=== PATIENT | male | born 1950 | race Caucasian/White ===

== ENCOUNTER 2020-05-14 10:07 | Inpatient (IN) | payer OTHER ==
[2020-05-14] MEDS ORDERED: SODIUM CHLORIDE 1,000 ML IV STA (10:57)
--- NOTE | 2020-05-14 11:18 | PDOC ---
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 Pt states he was followed outpatient by Dr. Pisano in Vasc/wound care, noted a left inner thigh mass a few days ago and upon follow up in clinic today, the wound is larger, attempted I&D of fluid collection showed no drainage . Pt denies F/C/N/V, new pain, changes in bowel or bladder habits, CP, SOB, abdominal pain. Pt became a rapid response after wound care appointment, reports low BP and feelings of presyncope. Pt denies LOC, falling or hitting his head, N/V/F/C, neck pain, changes in gait, weakness or sensory changes on 1 side of his body. Reported presyncopal event occured after getting up from the supine position which was after the I&D procedure Past History - Medical History Allergies/Adverse Reactions: Allergies Allergy/AdvReac Type Severity Reaction Status Date / Time bee venom protein (honey bee) Allergy Verified 05/14/20 10:17 Home Medications: Ambulatory Orders Amiodarone HCl 1 tab PO DAILY 05/14/20 Amlodipine Besylate [Norvasc -] 2.5 mg PO DAILY 05/14/20 Atorvastatin Ca [Lipitor] 1 tab PO DAILY 05/14/20 Calcium Carbonate/Vitamin D3 [Calcium 500-Vit D3 400 Tablet] 1 tab PO DAILY 05/14/20 Collagenase Clostridium Hist. [Santyl] 1 applic TD DAILY 05/14/20 Docusate Sodium [Colace] 1 cap PO DAILY 05/14/20 Ferrous Sulfate 1 tab PO BID 05/14/20 Hydrocodone/Acetaminophen [Hydrocodone-Acetamin 5-300 mg] 1 tab PO BID PRN 05/14/20 Menthol [Biofreeze] 1 applic TD DAILY 05/14/20 Metoprolol Succinate 1 tab PO DAILY 05/14/20 Mirtazapine [Remeron -] 1 tab PO DAILY 05/14/20 Multivitamin 1 tab PO DAILY 05/14/20 Mupirocin Cream [Bactroban 2% Cream -] 1 applic TD DAILY 05/14/20 Polyethylene Glycol 17 gm PO DAILY 05/14/20 Probiotic & Acidophilus Cap 1 tab PO DAILY 05/14/20 Sennosides [Senna] 1 cap PO DAILY 05/14/20 Tylenol .Extra-Strength - 500 mg PO BID PRN 05/14/20 Anemia: Yes Cancer: Yes (prostate) COPD: No HTN: Yes Hypercholesterolemia: Yes Thyroid Disease: Yes (hypothyrodism) - Surgical History Abdominal Surgery: Yes (colostomy) - Psycho-Social/Smoking History Smoking History: Unknown if ever smoked - Substance Abuse Hx (Audit-C & DAST Scrn) In the last yr the pt used illegal drug/Rx for NonMed reason: No Score: Yes response is considered Positive: 0 Screen Result (Positive result requires Nsg. DAST-10): Negative Review of Systems - Review of Systems Constitutional: Yes: See HPI HEENTM: Yes: See HPI Respiratory: Yes: See HPI Cardiac (ROS): Yes: See HPI ABD/GI: Yes: See HPI : Yes: See HPI Musculoskeletal: Yes: See HPI Integumentary: Yes: See HPI Neurological: Yes: See HPI *Physical Exam - Vital Signs Last Vital Signs Temp Pulse Resp BP Pulse Ox 97.8 F 84 16 104/66 98 05/14/20 10:10 05/14/20 10:10 05/14/20 10:10 05/14/20 10:10 05/14/20 10:10 - Physical Exam General Appearance: Yes: Nourished, Appropriately Dressed. No: Apparent Distress HEENT: positive: EOMI, ADAM Neck: positive: Supple. negative: Carotid bruit, Rigidity Respiratory/Chest: positive: Lungs Clear, Normal Breath Sounds. negative: Respiratory Distress, Accessory Muscle Use, Rapid RR, Decreased Breath Sounds, Crackles, Rales, Rhonchi, Stridor, Wheezing Cardiovascular: positive: Regular Rhythm, Regular Rate, S1, S2. negative: Edema, JVD, Murmur Vascular Pulses: Dorsalis-Pedis (R): 4+, Doralis-Pedis (L): 4+ Gastrointestinal/Abdominal: positive: Flat, Soft. negative: Pulsatile Mass, Distended, Guarding, Rebound, Tenderness Musculoskeletal: negative: CVA Tenderness Extremity: positive: Normal Capillary Refill, Normal Inspection, Normal Range of Motion Integumentary: positive: Other (multiple lesions on scalp and chest Basal cell CA and stage 2 sacral dec ulcer. Noted area left proximal inner thigh erythematous, indurated, painful packed with gauze after I&D ) Neurologic: positive: strategic sourcing consultant II-XII NML intact, Fully Oriented, Alert, Normal Mood/Affect, Normal Response, Motor Strength 5/5. negative: Facial Droop, Numbness, Sensory Deficit, Finger to Nose (normal), Confused, Disoriented ED Treatment Course - LABORATORY CBC & Chemistry Diagram: 05/16/20 06:20 05/16/20 06:20 - ADDITIONAL ORDERS Additional order review: Laboratory Results 05/14/20 10:43 POC Glucometer 92 05/14/20 10:43 POC Glucometer 92 - RADIOLOGY Radiology Studies Ordered: Category Date Time Status HEAD CT WITHOUT CONTRAST [CT] Stat CT Scan 05/14/20 10:54 Ordered CHEST X-RAY PORTABLE* [RAD] Stat Radiology 05/14/20 10:54 Ordered Medical Decision Making - Medical Decision Making 05/14/20 11:29 69 yo male pmh basal cell carcinomaand prostate ca (last radiation over a year ago), 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 Pt states he was followed outpatient by Dr. Pisano in Vasc/wound care, noted a left inner thigh mass a few days ago and upon follow up in clinic today, the wound is larger, attempted I&D of fluid collection showed no drainage . Pt denies F/C/N/V, new pain, changes in bowel or bladder habits, CP, SOB, abdominal pain. Pt became a rapid response after wound care appointment, reports low BP and feelings of presyncope. Pt denies LOC, falling or hitting his head, N/V/F/C, neck pain, changes in gait, weakness or sensory changes on 1 side of his body. Reported presyncopal event occured after getting up from the supine position which was after the I&D procedure Vitals stable, NAD EKG NSR vent rate 72 with normal intervals and no ST changes Pt on monitor, states he feels back to normal. Discussed case with Dr. Pisano, states I&D for possible abscess, no drainage and concerning now for possible CA recurrence. Recommends CT and likely IR biopsy CXR shows coiled line right side. Due to elevated WBC 16 and the left inner thigh mass, erythema, painful and reports of pus drainage at home, consider line infection and will cover with Vanc/Zosyn Trops neg, labs otherwise WNL 05/14/20 16:33 CT lower ext shows metastatic disease in the pubic bone, soft tissue mass extending from the left pubic bone into the medial thigh consistent with neoplasm with central fluid collection (necrosis vs abscess) Page sent to Dr. Pisano with regards to the CT results. Pt accepted for admission by Attending Hospitalist Discharge - Discharge Information Problems reviewed: Yes Clinical Impression/Diagnosis: Pre-syncope, Abscess, Cancer - Admission Yes - Follow up/Referral - Patient Discharge Instructions - Post Discharge Activity
--- NOTE | 2020-05-14 11:53 | PDOC ---
Documentation entered by Henrry Phillips SCRIBE, acting as scribe for Charlene Pat MD. Charlene Pat MD: This documentation has been prepared by the Alan carrero Xhesika, SCRIBE, under my direction and personally reviewed by me in its entirety. I confirm that the documentation accurately reflects all work, treatment, procedures, and medical decision making performed by me. Attending Attestation - Resident Resident Name: Riley Singh - ED Attending Attestation I have performed the following: I have examined & evaluated the patient, The case was reviewed & discussed with the resident, I agree w/resident's findings & plan, Exceptions are as noted - HPI HPI: 05/14/20 10:40 The patient is a 69y/o M with a pmh of basel cell carcinoma\. 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 Pt states he was called in by Dr. Salazar to have his L inner thigh abscess drained. Pt states Dr. Salazar attempted to drain his abscess when the pt became hypotensive and did not feel like himself. Pt denies LOC. Pt states he is back to his normal self now. has been eating and drinking ok. nonproductive cough,, no f/c no diarreha. no cp no sob. has been recently admitted [facility] . denies h/o covid. been tested multiple times. Allergies: NKDA. Bee venom protein wound care dr salazar. 05/14/20 11:31 - Physicial Exam PE: 05/14/20 11:34 awake alert lungs clear bilat heart rrr no mrg abd soft colostomy in place. nontender. skin : sacral decub. stage 4, yellowbase, quarter size, left inghinal region hard, indurated mass 2 x 3 in, central I&^D wound with wick in place/ packing. no erythema. skin scalp with large, heaped up lesion right parietal scalp. nuero alert oriented x 3. superficial linear abrasion right forearm. - Medical Decision Making 05/14/20 11:36 69 yo M with h/o basal cell, prostate ca, left inguinal mass, sacral decub. here with near syncopal episode at office today. pt was hypotensive just following, no precipitating cp or palpitations. differential sepsis, dehydration , orthostatis, situational from procedure, plan ct head, ct leg to evaluate mass, will emerson require admission for near synopce. labs ekg cxr 05/14/20 16:12 pt given abx for wbc 16, concerns for infection. has indwelling line. given vanco zosyn neoplasm, possible necrotic possible deep space abscess. Dr Salazar consult placed. has already tried to I&D in office. otherwise labs unremarkable. pt is anemic, no prior hgb to compare. Heart Score/ECG Review #1 General ECG Interpretation: Sinus Rhythm, Normal Rate (85), Normal Intervals, No acute ischemic changes Discharge - Discharge Information Problems reviewed: Yes Clinical Impression/Diagnosis: Pre-syncope, Abscess, Cancer - Follow up/Referral - Patient Discharge Instructions - Post Discharge Activity
[2020-05-14 11:58] LABS: BASO % 0.6 % (0-2.0); EOS % 0.8 % (0-4.5); HEMATOCRIT 26.9 % (35.4-49); HEMOGLOBIN 8.4 GM/dL (11.7-16.9); LYMPH % 5.1 % (8-40); MCH 25.1 pg (25.7-33.7); MCHC 31.1 g/dl (32.0-35.9); MEAN CELL VOLUME 80.7 fl (80-96); MEAN PLT VOLUME 7.1 fl (7.5-11.1); MONO % 3.7 % (3.8-10.2); NEUT % 89.8 % (42.8-82.8); PLATELET COUNT 718 K/MM3 (134-434); RBC 3.33 M/mm3 (4.00-5.60); RDW 22.5 % (11.9-15.9); WHITE BLOOD COUNT 16.7 K/mm3 (4.0-10.0)
[2020-05-14 12:16] LABS: INR 1.17 (0.83-1.09); PROTHROMBIN TIME (PATIENT) 13.8 SEC (9.7-13.0)
[2020-05-14 12:30] LABS: ALK PHOS 118 U/L (45-117); ANION GAP 6 MMOL/L (8-16); BILIRUBIN,TOTAL 0.7 mg/dL (0.2-1); BLOOD UREA NITROGEN 20.1 mg/dL (7-18); CALCIUM 9.6 mg/dL (8.5-10.1); CHLORIDE 100 mmol/L (98-107); CO2 29 mmol/L (21-32); CREATININE 0.8 mg/dL (0.55-1.3); GLUCOSE,RANDOM 105 mg/dL (74-106); POTASSIUM 4.6 mmol/L (3.5-5.1); SGOT/AST 36 U/L (15-37); SGPT/ALT 44 U/L (13-61); SODIUM 136 mmol/L (136-145)
[2020-05-14 13:44] LABS: ANISOCYTOSIS 1+
[2020-05-14 13:45] LABS: OVALOCYTE 1+; PLATELET ESTIMATE INCREASED; ROULEAU 2+; TEAR DROP CELLS 1+
[2020-05-14] MEDS ORDERED: PIPERACILLIN/TAZOB 4.5 GM 4.5 GM in DEXTROSE 5%-WATER 100 ML IVPB ONE (14:16)
[2020-05-14] MEDS ORDERED: VANCOMYCIN 1 GM in D5W (PRE-DOCKED) 1,000 MG/250 ML IVPB ONE (14:16)
--- NOTE | 2020-05-14 16:46 | CON.ID ---
Consult Consult Specialty:: infectious diseases Referred by:: dr. askew Reason for Consultation:: lef leg abscess,swelling - History of Present Illness Chief Complaint: swelling of the left leg History of Present Illness: 69 y.o. M w/ PMHx. of HTN, Irregular Heart Rate, Hx. of BCC (s/p removal with various mechanisms over the last 20+ years), and Prostate CA(s/p 40 rounds of RT, complicated by colon perforation, s/p colostomy) presents from Wound Care for chronic wound that was not draining on today at the center. Hospital course complicated by syncope. Pt. states that all of his issues started 2 years ago and that he was not on any medications at that time even though he believed he was told in the past that he had high blood pressure. . Pt. states that since his diagnosis of Prostate CA he was treated with RT which "burned a hole through his colon." Pt. states that he follow with Vashti Edwards? at [facility]? Pt. had colostomy at [place] 2 years ago. Pt. unsure of his medical history as he does not have a PCP and care has been disjointed. Pt. currently at [facility] and is unable to ambulate. Pt. completed 6 weeks of Vancomycin on 05/04/20. patient currently feels better aspiration of the swelling did not yield any collection - History Source History Provided By: Patient, Medical Record Limitations to Obtaining History: No Limitations - Smoking History Smoking history: Unknown if ever smoked Home Medications - Allergies Allergies/Adverse Reactions: Allergies Allergy/AdvReac Type Severity Reaction Status Date / Time bee venom protein (honey bee) Allergy Verified 05/14/20 10:17 - Home Medications Home Medications: Ambulatory Orders Calcium Carbonate/Vitamin D3 [Calcium 500-Vit D3 400 Tablet] 1 tab PO DAILY 05/14/20 Collagenase Clostridium Hist. [Santyl] 1 applic TD DAILY 05/14/20 Docusate Sodium [Colace] 1 cap PO DAILY 05/14/20 Hydrocodone/Acetaminophen [Hydrocodone-Acetamin 5-300 mg] 1 tab PO BID PRN 05/14/20 Menthol [Biofreeze] 1 applic TD DAILY 05/14/20 Mirtazapine [Remeron -] 1 tab PO DAILY 05/14/20 Mupirocin Cream [Bactroban 2% Cream -] 1 applic TD DAILY 05/14/20 Polyethylene Glycol 17 gm PO DAILY 05/14/20 Probiotic & Acidophilus Cap 1 tab PO DAILY 05/14/20 RX: Amiodarone HCl 1 tab PO DAILY 05/14/20 RX: Amlodipine Besylate [Norvasc -] 2.5 mg PO DAILY 05/14/20 RX: Atorvastatin Ca [Lipitor] 1 tab PO DAILY 05/14/20 RX: Ferrous Sulfate 1 tab PO BID 05/14/20 RX: Metoprolol Succinate 1 tab PO DAILY 05/14/20 RX: Multivitamin 1 tab PO DAILY 05/14/20 Sennosides [Senna] 1 cap PO DAILY 05/14/20 Tylenol .Extra-Strength - 500 mg PO BID PRN 05/14/20 Review of Systems - Review of Systems Constitutional: reports: Weakness Eyes: reports: No Symptoms HENT: reports: No Symptoms Neck: reports: No Symptoms Cardiovascular: reports: No Symptoms Respiratory: reports: No Symptoms Gastrointestinal: reports: No Symptoms Musculoskeletal: reports: Other Integumentary: reports: Other Neurological: reports: No Symptoms Endocrine: reports: No Symptoms Hematology/Lymphatic: reports: No Symptoms Psychiatric: reports: No Symptoms Physical Exam Vital Signs: Vital Signs Temperature 97.8 F 05/14/20 10:10 Pulse Rate 84 05/14/20 10:10 Respiratory Rate 16 05/14/20 10:10 Blood Pressure 104/66 05/14/20 10:10 O2 Sat by Pulse Oximetry (%) 98 05/14/20 10:10 Constitutional: Yes: Thin Eyes: Yes: Conjunctiva Clear HENT: Yes: Atraumatic, Normocephalic Neck: Yes: Supple, Trachea Midline Cardiovascular: Yes: Regular Rate and Rhythm Respiratory: Yes: Regular, CTA Bilaterally Gastrointestinal: Yes: Normal Bowel Sounds, Soft Musculoskeletal: Yes: WNL Extremities: Yes: Other (sweeling of the left thigh hardish for palpation) Wound/Incision: Yes: Dressing Dry and Intact Neurological: Yes: Alert, Oriented Psychiatric: Yes: Alert, Oriented Labs: CBC, BMP 05/14/20 11:20 05/14/20 11:20 Imaging - Results Chest X-ray: Report Reviewed, Image Reviewed Cat Scan: Report Reviewed, Image Reviewed Assessment/Plan 69M w/ pmhx of HTN, Irregular Heart Rate? (pt denies being told he has Afib), hx of BCC (s/p removal with various mechanisms over the last 20+ years), and Prostate CA(s/p 40 rounds of RT, complicated by colon perforation, s/p colostomy) presents from Wound Care for chronic wound that was not draining on today at the center. Hospital course complicated by syncope. r/o metastatic cancer afib syncope anemia htn i am worried if this is a malignancy involving the bone i am going to start empiric abx for the time being once we have all the results will decide further might need biopsy rest as per the team
[2020-05-14] MEDS ORDERED: PIPERACILLIN/TAZOB 4.5 GM 4.5 GM/100 ML BAG IVPB ONE (17:00)
[2020-05-14] MEDS ORDERED: SODIUM CHLORIDE 1,000 ML IV SCH (17:00)
[2020-05-14] MEDS ORDERED: VANCOMYCIN 1 GRAM (PRE-DOCKED) 1,000 MG/250 ML BAG IVPB ONE (17:01)
--- NOTE | 2020-05-14 17:09 | HP ---
CHIEF COMPLAINT: Syncope and LLE wound PCP: None HISTORY OF PRESENT ILLNESS: Pt. is a 69 y.o. M w/ PMHx. of HTN, Irregular Heart Rate?( Pt. denies being told he has Afib), Hx. of BCC (s/p removal with various mechanisms over the last 20+ years), and Prostate CA(s/p 40 rounds of RT, complicated by colon perforation, s/p colostomy) presents from Wound Care for chronic wound that was not draining on today at the center. Hospital course complicated by syncope. Pt. states that all of his issues started 2 years ago and that he was not on any medications at that time even though he believed he was told in the past that he had high blood pressure. Pt. with son Sav Renteria at bedside ([phone]). Pt. states that since his diagnosis of Prostate CA he was treated with RT which "burned a hole through his colon." Pt. states that he follow with Vashti Edwards? at [facility]? Pt. had colostomy at [place] 2 years ago. Pt. unsure of his medical history as he does not have a PCP and care has been disjointed. Pt. currently at [facility] and is unable to ambulate. Pt. completed 6 weeks of Vancomycin on 05/04/20. ER course was notable for: (1)1 L NS, Vanc/Zosyn (2)UCx/ Bcx. (3) Recent Travel: No PAST MEDICAL HISTORY: As above PAST SURGICAL HISTORY: Colostomy Social History: Smoking: Denies Alcohol: Denies Drugs: Denies Family Hx.: All brothers and father have Hx. of [place] in 40s. One brother has Prostate CA diagnosed in 60s. Allergies bee venom protein (honey bee) Allergy (Verified 05/14/20 10:17) HOME MEDICATIONS: Home Medications Medication Instructions Recorded Amiodarone HCl 1 tab PO DAILY 05/14/20 Amlodipine Besylate [Norvasc -] 2.5 mg PO DAILY 05/14/20 Atorvastatin Ca [Lipitor] 1 tab PO DAILY 05/14/20 Calcium Carbonate/Vitamin D3 1 tab PO DAILY 05/14/20 [Calcium 500-Vit D3 400 Tablet] Collagenase Clostridium Hist. 1 applic TD DAILY 05/14/20 [Santyl] Docusate Sodium [Colace] 1 cap PO DAILY 05/14/20 Ferrous Sulfate 1 tab PO BID 05/14/20 Heparin Lock Flush 10 Units/ml 1 IV DAILY 05/14/20 Hydrocodone/Acetaminophen 1 tab PO BID PRN 05/14/20 [Hydrocodone-Acetamin 5-300 mg] Menthol [Biofreeze] 1 applic TD DAILY 05/14/20 Metoprolol Succinate 1 tab PO DAILY 05/14/20 Mirtazapine [Remeron -] 1 tab PO DAILY 05/14/20 Multivitamin 1 tab PO DAILY 05/14/20 Mupirocin Cream [Bactroban 2% 1 applic TD DAILY 05/14/20 Cream -] Piperacillin/Tazob 3.375 gm [Zosyn 3.375 gm IV TID 05/14/20 3.375GM Ivpb (Pre-Docked)] Polyethylene Glycol 17 gm PO DAILY 05/14/20 Probiotic & Acidophilus Cap 1 tab PO DAILY 05/14/20 Sennosides [Senna] 1 cap PO DAILY 05/14/20 Tylenol .Extra-Strength - 500 mg PO BID PRN 05/14/20 REVIEW OF SYSTEMS As above PHYSICAL EXAMINATION Vital Signs - 24 hr 05/14/20 10:10 Temperature 97.8 F Pulse Rate 84 Respiratory 16 Rate Blood Pressure 104/66 O2 Sat by Pulse 98 Oximetry (%) GENERAL: Awake, alert, and in no acute distress, thin and cachectic HEAD: Normal with no signs of trauma. Left frontal masses(BCC?) EYES: Sclera anicteric, conjunctiva clear. EARS, NOSE, THROAT: Ears normal, nares patent, oropharynx clear without exudates. Moist mucous membranes. NECK: Normal range of motion, supple without lymphadenopathy, JVD, or masses. LUNGS: Breath sounds equal anteriorly, clear to auscultation bilaterally. No wheezes, and no crackles. HEART: Faint Heart sounds, Regular rate and rhythm, normal S1 and S2 without murmur. R. Central line into subclavian ABDOMEN: Soft, nontender, not distended, normoactive bowel sounds, no guarding, no rebound, no masses. UPPER EXTREMITIES: 2+ radial pulses, warm, well-perfused. No cyanosis. No peripheral edema. LOWER EXTREMITIES: 2+ dorsal pedal pulses, warm, well-perfused. No calf tenderness. No peripheral edema. L. groin mass non-tender to palpation, no drainage, no erythema, no fluctuance. NEUROLOGICAL: 5/5 muscle strength throughout, sensation intact. Normal speech. Gait not assessed. PSYCHIATRIC: Cooperative. Good eye contact. Appropriate mood and affect. SKIN: Rash on chest? Pt. states they were areas where BCC were frozen, R. wrist lesion Laboratory Results - last 24 hr 05/14/20 05/14/20 05/14/20 10:43 11:20 11:20 WBC 16.7 H RBC 3.33 L Hgb 8.4 L Hct 26.9 L MCV 80.7 MCH 25.1 L MCHC 31.1 L RDW 22.5 H Plt Count 718 H MPV 7.1 L Absolute Neuts (auto) 15.0 H Neutrophils % 89.8 H Lymphocytes % 5.1 L Monocytes % 3.7 L Eosinophils % 0.8 Basophils % 0.6 Nucleated RBC % 0 Hypochromia 2+ Platelet Estimate Increased Platelet Comment No clumping noted Polychromasia 1+ Poikilocytosis 1+ Anisocytosis 1+ Microcytosis 1+ Tear Drop Cells 1+ Ovalocytes 1+ Stomatocytes 1+ Rouleaux 2+ PT with INR 13.80 H INR 1.17 H Sodium Potassium Chloride Carbon Dioxide Anion Gap BUN Creatinine Est GFR (CKD-EPI)AfAm Est GFR (CKD-EPI)NonAf POC Glucometer 92 Random Glucose Calcium Total Bilirubin AST ALT Alkaline Phosphatase Creatine Kinase Troponin I Total Protein Albumin 05/14/20 11:20 WBC RBC Hgb Hct MCV MCH MCHC RDW Plt Count MPV Absolute Neuts (auto) Neutrophils % Lymphocytes % Monocytes % Eosinophils % Basophils % Nucleated RBC % Hypochromia Platelet Estimate Platelet Comment Polychromasia Poikilocytosis Anisocytosis Microcytosis Tear Drop Cells Ovalocytes Stomatocytes Rouleaux PT with INR INR Sodium 136 Potassium 4.6 Chloride 100 Carbon Dioxide 29 Anion Gap 6 L BUN 20.1 H Creatinine 0.8 Est GFR (CKD-EPI)AfAm 106.38 Est GFR (CKD-EPI)NonAf 91.79 POC Glucometer Random Glucose 105 Calcium 9.6 Total Bilirubin 0.7 AST 36 ALT 44 Alkaline Phosphatase 118 H Creatine Kinase 25 L Troponin I < 0.02 Total Protein 8.0 Albumin 2.0 L ASSESSMENT/PLAN: Pt. is a 69 y.o. M w/ PMHx. of HTN, Irregular Heart Rate?( Pt. denies being told he has Afib), Hx. of BCC (s/p removal with various mechanisms over the last 20+ years), and Prostate CA(s/p 40 rounds of RT, complicated by colon perforation, s/p colostomy) presents from Wound Care for chronic wound that was not draining on today at the center. Hospital course complicated by syncope. #LLE wound? vs. Necrotic LN? #Hx. of Prostate CA #Hx. of BCC ID and Wound care Consults appreciated Heme/Onc and IR consults appreciated for biopsy and analysis of tissue; f/u records from [facility]; has seen Dr. Bennett in past?? CT LLE w/ contrast reviewed, Bony destruction with adjacent soft tissue mass c/w metastatic disease. Central Fluid suggestive of necrosis vs. abcess. Pt. is s/p 6 weeks of Vancomycin; received Zosyn and Vancomycin in ED c/w Zosyn and Vancomycin PET Scan outpatient, Pt. needs PCP #Afib? #Malnutrition #Syncope like 2/2 dehydration vs. vasovagal. Dietary consult appreciated f/u orthostatic VS. lying and sitting up, has already received IVF EKG wnl Consider cardiology consult appreciated for cardiac clarification and assistance in risk stratification given Malignancy and potential need for invasive procedures. Pt. has significant family history of [place] in ALL brother and Father in their 40s. Hold Metoprolol C/w Amiodarone Pt. not on AC and is unsure why, has Hx. of major bleeding within the past 3 months. resume Remeron #Borderline Microcytic Anemia likely 2/2 to bone malignancy, cannot r/o concomitant Iron deficiency f/u Iron studies, and f/u Reticulocyte count Pt. has 2 active malignancies with known metastases, will continue DVT Ppx. Low threshold to stop Lovenox DVT Ppx. if HgB declines further, currently 8.4 HgB will trend #HTN hold home medications, restart when appropriate #FEN NS @ 50 monitor electrolytes, replete as needed Normal Diet #DVT Ppx. Lovenox 40 #Dispo Telemetry---> will need NH on discharge, comes from [facility], Family asking to go to another facility, [place]? Code Status needs to be addressed Medications reconciled Family Medical History Family History: As Documented Visit type - Medication Review Med list reviewed for High Risk Meds patients 65 and older: Yes - Emergency Visit Emergency Visit: Yes ED Registration Date: 05/14/20 Care time: The patient presented to the Emergency Department on the above date and was hospitalized for further evaluation of their emergent condition. - New Patient This patient is new to me today: Yes Date on this admission: 05/14/20 - Critical Care Critical Care patient: No ATTENDING PHYSICIAN STATEMENT I saw and evaluated the patient. I reviewed the resident's note and discussed the case with the resident. I agree with the resident's findings and plan as documented. SUBJECTIVE: OBJECTIVE: ASSESSMENT AND PLAN:
[2020-05-14] MEDS: PIPERACILLIN/TAZOB 3.375 GM 3.375 GM in DEXTROSE 5%-WATER - 50 ML IVPB SCH (17:15)
[2020-05-14 18:27] LABS: URINE COLOR YELLOW
[2020-05-14 18:28] LABS: URINE APPEARANCE CLEAR; URINE BILIRUBIN NEGATIVE (NEGATIVE); URINE GLUCOSE (UA) NEGATIVE (NEGATIVE); URINE KETONE NEGATIVE (NEGATIVE); URINE LEUK ESTERASE NEGATIVE (NEGATIVE); URINE NITRITE NEGATIVE (NEGATIVE); URINE PROTEIN NEGATIVE (NEGATIVE); URINE RBC 23.5 /uL (0-23.9); URINE UROBILINOGEN 1 mg/dL (0.2-1.0); URINE WBC 10.1 /uL (0-25.8)
[2020-05-14 18:29] LABS: EPI CELLS 6.1 /uL (0-25.1); HYALINE CASTS 0.89 /uL (0-3.1); URINE BACTERIA 6.6 /uL (0-1359)
[2020-05-14] MEDS ORDERED: ATORVASTATIN CA 10 MG TABLET (FP) ONE (22:09)
[2020-05-14] MEDS ORDERED: MIRTAZAPINE 15 MG TABLET (FP) ONE (22:10)
[2020-05-14] MEDS ORDERED: FERROUS SO4 325 MG TABLET (FP) ONE (22:10)
[2020-05-14] MEDS: MIRTAZAPINE 15 MG TABLET (FP) PO SCH (22:19)
[2020-05-14] MEDS: ATORVASTATIN CA 10 MG TABLET (FP) PO SCH (22:19)
[2020-05-14] MEDS: FERROUS SO4 325 MG TABLET (FP) PO SCH (22:19)
--- NOTE | 2020-05-14 22:21 | PN ---
Teaching Attending Note Name of Resident: Trell Sumner ATTENDING PHYSICIAN STATEMENT I saw and evaluated the patient. I reviewed the resident's note and discussed the case with the resident. I agree with the resident's findings and plan as documented. SUBJECTIVE: patient seen and examined at bedside, admitted for L thigh abscess/mass, h/o prostate ca/recurrent BCC, will need bx of L thigh mass. VSS. OBJECTIVE: GA cachectic, deconditioned, AAOx3 HEENT dry MM, neck supple, no oral thrush Chest good air entry b/l, no crackles or wheezing CVS s1, S2+, RRR Abd thin body habitus, soft, NT, ND, BS+, colostomy bag w/ greenish feces Ext no LE edema, no calf tenderness, L thigh ulcerated mass w/o fluctuance, TTP Vital Signs - 24 hr 05/14/20 05/14/20 10:10 10:45 Temperature 97.8 F Pulse Rate 84 Respiratory 16 Rate Blood Pressure 104/66 O2 Sat by Pulse 98 97 Oximetry (%) Laboratory Results - last 24 hr 05/14/20 05/14/20 05/14/20 10:43 11:20 11:20 WBC 16.7 H RBC 3.33 L Hgb 8.4 L Hct 26.9 L MCV 80.7 MCH 25.1 L MCHC 31.1 L RDW 22.5 H Plt Count 718 H MPV 7.1 L Absolute Neuts (auto) 15.0 H Neutrophils % 89.8 H Lymphocytes % 5.1 L Monocytes % 3.7 L Eosinophils % 0.8 Basophils % 0.6 Nucleated RBC % 0 Hypochromia 2+ Platelet Estimate Increased Platelet Comment No clumping noted Polychromasia 1+ Poikilocytosis 1+ Anisocytosis 1+ Microcytosis 1+ Tear Drop Cells 1+ Ovalocytes 1+ Stomatocytes 1+ Rouleaux 2+ PT with INR 13.80 H INR 1.17 H Sodium Potassium Chloride Carbon Dioxide Anion Gap BUN Creatinine Est GFR (CKD-EPI)AfAm Est GFR (CKD-EPI)NonAf POC Glucometer 92 Random Glucose Lactic Acid Calcium Total Bilirubin AST ALT Alkaline Phosphatase Creatine Kinase Troponin I Total Protein Albumin Urine Color Urine Appearance Urine pH Ur Specific [place] Urine Protein Urine Glucose (UA) Urine Ketones Urine Blood Urine Nitrite Urine Bilirubin Urine Urobilinogen Ur Leukocyte Esterase Urine WBC (Auto) Urine RBC (Auto) Urine Casts (Auto) U Epithel Cells (Auto) Urine Bacteria (Auto) 05/14/20 05/14/20 05/14/20 11:20 17:20 18:11 WBC RBC Hgb Hct MCV MCH MCHC RDW Plt Count MPV Absolute Neuts (auto) Neutrophils % Lymphocytes % Monocytes % Eosinophils % Basophils % Nucleated RBC % Hypochromia Platelet Estimate Platelet Comment Polychromasia Poikilocytosis Anisocytosis Microcytosis Tear Drop Cells Ovalocytes Stomatocytes Rouleaux PT with INR INR Sodium 136 Potassium 4.6 Chloride 100 Carbon Dioxide 29 Anion Gap 6 L BUN 20.1 H Creatinine 0.8 Est GFR (CKD-EPI)AfAm 106.38 Est GFR (CKD-EPI)NonAf 91.79 POC Glucometer Random Glucose 105 Lactic Acid 2.0 Calcium 9.6 Total Bilirubin 0.7 AST 36 ALT 44 Alkaline Phosphatase 118 H Creatine Kinase 25 L Troponin I < 0.02 Total Protein 8.0 Albumin 2.0 L Urine Color Yellow Urine Appearance Clear Urine pH 5.0 Ur Specific [place] 1.049 H Urine Protein Negative Urine Glucose (UA) Negative Urine Ketones Negative Urine Blood Negative Urine Nitrite Negative Urine Bilirubin Negative Urine Urobilinogen 1 Ur Leukocyte Esterase Negative Urine WBC (Auto) 10.1 Urine RBC (Auto) 23.5 Urine Casts (Auto) 0.89 U Epithel Cells (Auto) 6.1 Urine Bacteria (Auto) 6.6 05/14/20 18:11 WBC RBC Hgb Hct MCV MCH MCHC RDW Plt Count MPV Absolute Neuts (auto) Neutrophils % Lymphocytes % Monocytes % Eosinophils % Basophils % Nucleated RBC % Hypochromia Platelet Estimate Platelet Comment Polychromasia Poikilocytosis Anisocytosis Microcytosis Tear Drop Cells Ovalocytes Stomatocytes Rouleaux PT with INR INR Sodium Potassium Chloride Carbon Dioxide Anion Gap BUN Creatinine Est GFR (CKD-EPI)AfAm Est GFR (CKD-EPI)NonAf POC Glucometer Random Glucose Lactic Acid Calcium Total Bilirubin AST ALT Alkaline Phosphatase Creatine Kinase Troponin I < 0.02 Total Protein Albumin Urine Color Urine Appearance Urine pH Ur Specific [place] Urine Protein Urine Glucose (UA) Urine Ketones Urine Blood Urine Nitrite Urine Bilirubin Urine Urobilinogen Ur Leukocyte Esterase Urine WBC (Auto) Urine RBC (Auto) Urine Casts (Auto) U Epithel Cells (Auto) Urine Bacteria (Auto) Home Medications Medication Instructions Recorded Amiodarone HCl 1 tab PO DAILY 05/14/20 Amlodipine Besylate [Norvasc -] 2.5 mg PO DAILY 05/14/20 Atorvastatin Ca [Lipitor] 1 tab PO DAILY 05/14/20 Calcium Carbonate/Vitamin D3 1 tab PO DAILY 05/14/20 [Calcium 500-Vit D3 400 Tablet] Collagenase Clostridium Hist. 1 applic TD DAILY 05/14/20 [Santyl] Docusate Sodium [Colace] 1 cap PO DAILY 05/14/20 Ferrous Sulfate 1 tab PO BID 05/14/20 Hydrocodone/Acetaminophen 1 tab PO BID PRN 05/14/20 [Hydrocodone-Acetamin 5-300 mg] Menthol [Biofreeze] 1 applic TD DAILY 05/14/20 Metoprolol Succinate 1 tab PO DAILY 05/14/20 Mirtazapine [Remeron -] 1 tab PO DAILY 05/14/20 Multivitamin 1 tab PO DAILY 05/14/20 Mupirocin Cream [Bactroban 2% 1 applic TD DAILY 05/14/20 Cream -] Polyethylene Glycol 17 gm PO DAILY 05/14/20 Probiotic & Acidophilus Cap 1 tab PO DAILY 05/14/20 Sennosides [Senna] 1 cap PO DAILY 05/14/20 Tylenol .Extra-Strength - 500 mg PO BID PRN 05/14/20 Current Medications Generic Name Dose Route Start Last Admin Trade Name Freq PRN Reason Stop Dose Admin Amiodarone HCl 200 mg 05/15/20 10:00 Cordarone - PO DAILY ALE Atorvastatin Calcium 10 mg 05/14/20 22:00 Lipitor - PO HS ALE Collagenase 1 applic 05/15/20 10:00 Santyl - TP DAILY LAE Protocol Docusate Sodium 100 mg 05/15/20 10:00 Colace - PO DAILY ALE Enoxaparin Sodium 40 mg 05/15/20 10:00 Lovenox - SQ DAILY ALE Ferrous Sulfate 325 mg 05/14/20 22:00 Feosol - PO BID ALE Piperacillin Sod/Tazobactam 50 mls @ 100 mls/hr 05/14/20 18:00 05/14/20 17:15 Sod 3.375 gm/ Dextrose IVPB 100 mls/hr Q8H-IV ALE Administration Protocol Sodium Chloride 1,000 mls @ 50 mls/hr 05/14/20 17:00 05/14/20 17:02 Normal Saline - IV 05/15/20 16:56 50 mls/hr ASDIR ALE Administration Mirtazapine 15 mg 05/14/20 22:00 Remeron - PO HS ALE Mupirocin 1 applic 05/15/20 10:00 Bactroban 2% Cream - TP DAILY ALE Non-Formulary Medication 1 applic 05/15/20 10:00 Menthol [Biofreeze] TD DAILY ALE Senna 1 tab 05/15/20 10:00 Senna - PO DAILY ALE ASSESSMENT AND PLAN: 69 M L thigh necrotic mass suspicious for ca Reported syncope Colonic perforation s/p colostomy Prostate ca s/p RT/chemo complicated by radiation cystitis/colitis ?h/o Afib on Amiodarone HTN HLD Depression Deconditioning Cachexia Low BMI 2/2 low caloric intake JOHANNA Plan: Zosyn for empiric abx coverage for cellulitis VAscular following for wound care IR consult for L thigh biopsy ID evaluation Wound care Send PSA levels Cont. tele monitoring, obtain Echo/carotids, syncope likely 2/2 volume depletion Obtain orthostatics DVT ppx: Lovenox SC
[2020-05-15] MEDS ORDERED: PIPERACILLIN/TAZOB 3.375 GM 3.375 GM/50 ML BAG IVPB ONE ×2 (02:07→10:09)
[2020-05-15] MEDS: PIPERACILLIN/TAZOB 3.375 GM 3.375 GM in DEXTROSE 5%-WATER - 50 ML IVPB SCH ×3 (02:17→17:04)
[2020-05-15 07:34] LABS: BASO % 0.9 % (0-2.0); HEMATOCRIT 26.2 % (35.4-49); HEMOGLOBIN 8.2 GM/dL (11.7-16.9); LYMPH % 12.2 % (8-40); MCH 25.3 pg (25.7-33.7); MCHC 31.2 g/dl (32.0-35.9); MEAN CELL VOLUME 81.2 fl (80-96); MEAN PLT VOLUME 6.9 fl (7.5-11.1); MONO % 5.4 % (3.8-10.2); NEUT % 79.5 % (42.8-82.8); PLATELET COUNT 643 K/MM3 (134-434); RBC 3.22 M/mm3 (4.00-5.60); RDW 22.1 % (11.9-15.9); WHITE BLOOD COUNT 8.2 K/mm3 (4.0-10.0)
[2020-05-15 07:40] LABS: INR 1.18 (0.83-1.09); PROTHROMBIN TIME (PATIENT) 13.9 SEC (9.7-13.0)
[2020-05-15 08:26] LABS: IRON SERUM 37 ug/dL (50-175); TOTAL IRON BINDING CAPACITY 202 ug/dL (250-450)
[2020-05-15 08:32] LABS: ALBUMIN 1.9 g/dl (3.4-5.0); ALK PHOS 97 U/L (45-117); ANION GAP 3 MMOL/L (8-16); BILIRUBIN,TOTAL 0.4 mg/dL (0.2-1); BLOOD UREA NITROGEN 15.8 mg/dL (7-18); CHLORIDE 105 mmol/L (98-107); CO2 31 mmol/L (21-32); CREATININE 0.5 mg/dL (0.55-1.3); GLUCOSE,RANDOM 78 mg/dL (74-106); MAGNESIUM 2.5 mg/dL (1.8-2.4); PHOSPHOROUS 3.7 mg/dL (2.5-4.9); POTASSIUM 4.4 mmol/L (3.5-5.1); SGOT/AST 23 U/L (15-37); SGPT/ALT 38 U/L (13-61); SODIUM 138 mmol/L (136-145); TOT PROT 6.7 g/dl (6.4-8.2)
--- NOTE | 2020-05-15 09:20 | PN ---
Progress Note, Physician History of Present Illness: stable no complaints wbc has resolved - Current Medication List Current Medications: Active Medications Amiodarone HCl (Cordarone -) 200 mg PO DAILY ALE Atorvastatin Calcium (Lipitor -) 10 mg PO HS ALE Last Admin: 05/14/20 22:19 Dose: 10 mg Documented by: Collagenase (Santyl -) 1 applic TP DAILY ALE; Protocol Docusate Sodium (Colace -) 100 mg PO DAILY ALE Enoxaparin Sodium (Lovenox -) 40 mg SQ DAILY ALE Ferrous Sulfate (Feosol -) 325 mg PO BID ALE Last Admin: 05/14/20 22:19 Dose: 325 mg Documented by: Piperacillin Sod/Tazobactam (Sod 3.375 gm/ Dextrose) 50 mls @ 100 mls/hr IVPB Q8H-IV ALE; Protocol Last Admin: 05/15/20 02:17 Dose: 100 mls/hr Documented by: Sodium Chloride (Normal Saline -) 1,000 mls @ 50 mls/hr IV ASDIR ALE Stop: 05/15/20 16:56 Last Admin: 05/14/20 17:02 Dose: 50 mls/hr Documented by: Mirtazapine (Remeron -) 15 mg PO HS ALE Last Admin: 05/14/20 22:19 Dose: 15 mg Documented by: Mupirocin (Bactroban 2% Cream -) 1 applic TP DAILY ALE Non-Formulary Medication (Menthol [Biofreeze]) 1 applic TD DAILY ALE Senna (Senna -) 1 tab PO DAILY ALE - Objective Vital Signs: Vital Signs Temperature 98.0 F 05/15/20 06:21 Pulse Rate 75 05/15/20 06:21 Respiratory Rate 19 05/15/20 06:21 Blood Pressure 101/53 L 05/15/20 06:21 O2 Sat by Pulse Oximetry (%) 100 05/15/20 06:21 Constitutional: Yes: No Distress, Calm Cardiovascular: Yes: S1, S2 Respiratory: Yes: Regular, CTA Bilaterally Gastrointestinal: Yes: Normal Bowel Sounds, Soft Musculoskeletal: Yes: WNL Extremities: Yes: Other Wound/Incision: Yes: Dressing Dry and Intact Neurological: Yes: Alert, Oriented Psychiatric: Yes: Alert, Oriented Labs: CBC, BMP 05/15/20 05:58 05/15/20 05:58 INR, PTT INR 1.18 (0.83-1.09) H 05/15/20 05:58 Assessment/Plan 69M w/ pmhx of HTN, Irregular Heart Rate? (pt denies being told he has Afib), hx of BCC (s/p removal with various mechanisms over the last 20+ years), and P rostate CA(s/p 40 rounds of RT, complicated by colon perforation, s/p colostomy) presents from Wound Care for chronic wound that was not draining on today at the center. Hospital course complicated by syncope. r/o metastatic cancer afib syncope anemia htn ict abx plan for biopsy rest as per the team
--- NOTE | 2020-05-15 09:52 | CON.CARD ---
Consult Consult Specialty:: Cardiology Referred by:: Hospitalist Service Reason for Consultation:: Cardiac evaluation - History of Present Illness Chief Complaint: Near syncope History of Present Illness: Patient is a 69 year old male with underlying history of prostate CA s/p RT complicated by colon perforation requiring colostomy, history of BCC and HTN who presents from wound care clinic after trying to drain a wound from left thigh, but not able to. During the above evaluation, he had a near syncopal episode which prompted a cardiology consultation. He was in ED when seen and admitted for evaluation of the mass. He denies chest pain, shortness of breath or palpitations. He denies PND or orthopnea. He denies fever or chills. He denies nausea,vomiting, diarrhea or abdominal pain. He denies headache or lightheadedness. He states having irregular heart rate, but does not recall having or being told having AF. He is not on anticoagulation but medication lists Amiodarone. - History Source History Provided By: Patient, Medical Record Limitations to Obtaining History: No Limitations - Past Medical History Cardio/Vascular: Yes: HTN Renal/: Yes: Cancer (Prostate CA) - Past Surgical History Past Surgical History: Yes: Colostomy (Due to colon perforation after RT) - Alcohol/Substance Use Hx Alcohol Use: No History of Substance Use: reports: None - Smoking History Smoking history: Never smoked Home Medications - Allergies Allergies/Adverse Reactions: Allergies Allergy/AdvReac Type Severity Reaction Status Date / Time bee venom protein (honey bee) Allergy Verified 05/14/20 10:17 - Home Medications Home Medications: Ambulatory Orders Amiodarone HCl 1 tab PO DAILY 05/14/20 Amlodipine Besylate [Norvasc -] 2.5 mg PO DAILY 05/14/20 Atorvastatin Ca [Lipitor] 1 tab PO DAILY 05/14/20 Calcium Carbonate/Vitamin D3 [Calcium 500-Vit D3 400 Tablet] 1 tab PO DAILY 05/14/20 Collagenase Clostridium Hist. [Santyl] 1 applic TD DAILY 05/14/20 Docusate Sodium [Colace] 1 cap PO DAILY 05/14/20 Ferrous Sulfate 1 tab PO BID 05/14/20 Hydrocodone/Acetaminophen [Hydrocodone-Acetamin 5-300 mg] 1 tab PO BID PRN 05/14/20 Menthol [Biofreeze] 1 applic TD DAILY 05/14/20 Metoprolol Succinate 1 tab PO DAILY 05/14/20 Mirtazapine [Remeron -] 1 tab PO DAILY 05/14/20 Multivitamin 1 tab PO DAILY 05/14/20 Mupirocin Cream [Bactroban 2% Cream -] 1 applic TD DAILY 05/14/20 Polyethylene Glycol 17 gm PO DAILY 05/14/20 Probiotic & Acidophilus Cap 1 tab PO DAILY 05/14/20 Sennosides [Senna] 1 cap PO DAILY 05/14/20 Tylenol .Extra-Strength - 500 mg PO BID PRN 05/14/20 Family Medical History Family Hx Cancer: Brother (Prostate CA) Family Hx Cardiac Disorders: Father, Brother Review of Systems - Review of Systems Constitutional: denies: Chills, Fever Cardiovascular: denies: Chest Pain, Palpitations, Shortness of Breath Respiratory: denies: Cough, Hemoptysis, Orthopnea, PND, SOB, SOB on Exertion, Wheezing Gastrointestinal: denies: Abdominal Pain, Constipation, Diarrhea, Melena, Nausea, Rectal Bleeding, Vomiting Neurological: reports: Syncope (Near syncope ?vasvagal). denies: Dizziness, Headache, Seizure Vital Signs: Vital Signs Temperature 98.0 F 05/15/20 06:21 Pulse Rate 75 05/15/20 06:21 Respiratory Rate 19 05/15/20 06:21 Blood Pressure 101/53 L 05/15/20 06:21 O2 Sat by Pulse Oximetry (%) 100 05/15/20 06:21 HENT: Yes: Atraumatic Neck: Yes: Supple Respiratory: Yes: CTA Bilaterally Gastrointestinal: Yes: Normal Bowel Sounds, Soft, Other (Colostomy bag) Cardiovascular: Yes: Regular Rate and Rhythm JVD: No Carotid Bruit: No PMI: Non-Displaced Heart Sounds: Yes: S1, S2. No: Clicks Edema: No - Other Data Labs, Other Data: CBC, BMP 05/15/20 05:58 05/15/20 05:58 INR, PTT INR 1.18 (0.83-1.09) H 05/15/20 05:58 Troponin, BNP 05/14/20 05/14/20 05/15/20 11:20 18:11 05:58 Troponin I < 0.02 < 0.02 < 0.02 Not on chart Imaging - Results Chest X-ray: Report Reviewed (Unremarkable) Cat Scan: Report Reviewed (Head CT unremarkable) EKG: Pending Problem List - Problems (1) HTN (hypertension) Code(s): I10 - ESSENTIAL (PRIMARY) HYPERTENSION (2) Hypercholesterolemia Code(s): E78.00 - PURE HYPERCHOLESTEROLEMIA, UNSPECIFIED (3) Prostate CA Code(s): C61 - MALIGNANT NEOPLASM OF PROSTATE (4) Pre-syncope Code(s): R55 - SYNCOPE AND COLLAPSE Assessment/Plan 1. Left thigh mass, etiology to be determined ?malignancy 2. HTN 3. Prostate CA s/p RT with complication resulting in colon perforation requiring colostomy 4. Near syncope ?vasovagal 5. BCC 6. Hypercholesterolemia PLAN: 1. ECG 2. Unclear indication for Amiodarone use unless he has definite history of AF in the past. He is also not on anticoagulation. Since he is maintained in sinus rhythm, would discontinue Amiodarone. 3. May consider starting low dose beta shan if BP tolerates 4. 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 Atorvastatin 10 mg QHS 7. Antibiotic coverage Further plans are to follow Kenney Barrett MD
[2020-05-15] MEDS ORDERED: AMIODARONE HCL 200 MG TABLET PO SCH (10:00)
[2020-05-15] MEDS ORDERED: MENTHOL TD SCH (10:00)
[2020-05-15] MEDS ORDERED: AMIODARONE HCL 200 MG TABLET ONE (10:08)
[2020-05-15] MEDS ORDERED: SENNOSIDES 8.6MG TABLET (FP) PO ONE (10:08)
[2020-05-15] MEDS ORDERED: DOCUSATE SODIUM 100 MG CAPSULE (FP) PO ONE (10:09)
[2020-05-15] MEDS ORDERED: FERROUS SO4 325 MG TABLET (FP) ONE (10:09)
[2020-05-15] MEDS: DOCUSATE SODIUM 100 MG CAPSULE (FP) PO SCH (10:27)
[2020-05-15] MEDS: SENNOSIDES 8.6MG TABLET (FP) PO SCH (10:28)
[2020-05-15] MEDS: FERROUS SO4 325 MG TABLET (FP) PO SCH ×2 (10:28→21:29)
[2020-05-15] MEDS: ENOXAPARIN NA (PORCINE) 40 MG/0.4 ML DISP.SYRIN SQ SCH (10:28)
[2020-05-15] MEDS ORDERED: ENOXAPARIN NA (PORCINE) 40 MG/0.4 ML DISP.SYRIN SQ ONE (10:29)
--- NOTE | 2020-05-15 10:55 | CONSULT ---
Consultation: Heme-Onc Resident Note REQUESTING PROVIDER: Dr. Ac CONSULT REQUEST: We have been asked to medically evaluate this patient for left groin mass, hx of BCC and prostate ca. HISTORY OF PRESENT ILLNESS: Patient is a 69 year old male with past medical history of basal cell carcinoma, prostate cancer, HTN, presented to the ED from wound care clinic for left thigh mass. Patient reported he noted the mass on his left inner thigh about 4 days ago, reported to be soft. No fevers, chills, no pain or surrounding redness. Yesterday, he followed up at the wound care clinic where I&D was done, but no drainage was noted. He was moved from the bed to the chair, and patient suddenly felt dizzy, denies any loss of consciousness. He was immediately brought to the ED and felt better when he was lying down on the stretcher. 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 Patient was also diagnosed with prostate cancer last year, where he started receiving radiation therapy with Dr. Bello at [facility]. It was complicated by colon perforation and patient was brought to [facility] where he had colostomy placed. Patient reported that it presented with heavy rectal bleeding. He was discharged to SNF for rehab and he had difficulty ambulating. Patient denies any fevers, chills, headache, nausea, vomiting, chest pain, shortness of breath, abdominal pain, diarrhea, urinary symptoms. PMHx: basal cell carcinoma, prostate cancer, HTN PSHx: colostomy Allergies: NKDA SHx: denies smoking, etoh drinking, illicit drug use FHx: All brothers and father have Hx. of CT in 40s. One brother has Prostate CA diagnosed in 60s. REVIEW OF SYSTEMS: CONSTITUTIONAL: Absent: fever, chills, diaphoresis, generalized weakness, malaise, loss of appetite, weight change HEENT: Absent: rhinorrhea, nasal congestion, throat pain, throat swelling, difficulty swallowing, mouth swelling, ear pain, eye pain, visual changes CARDIOVASCULAR: Absent: chest pain, syncope, palpitations, irregular heart rate, lightheadedness, peripheral edema RESPIRATORY: Absent: cough, shortness of breath, dyspnea with exertion, orthopnea, wheezing, stridor, hemoptysis GASTROINTESTINAL: Absent: abdominal pain, abdominal distension, nausea, vomiting, diarrhea, constipation, melena, hematochezia GENITOURINARY: Absent: dysuria, frequency, urgency, hesitancy, hematuria, flank pain, genital pain MUSCULOSKELETAL: Absent: myalgia, arthralgia, joint swelling, back pain, neck pain SKIN: Absent: rash, itching, pallor HEMATOLOGIC/IMMUNOLOGIC: Absent: easy bleeding, easy bruising, lymphadenopathy, frequent infections ENDOCRINE: Absent: unexplained weight gain, unexplained weight loss, heat intolerance, cold intolerance NEUROLOGIC: Absent: headache, focal weakness or paresthesias, dizziness, unsteady gait, seizure, mental status changes, bladder or bowel incontinence PSYCHIATRIC: Absent: anxiety, depression, suicidal or homicidal ideation, hallucinations. PHYSICAL EXAMINATION Vital Signs - 24 hr 05/14/20 05/15/20 05/15/20 23:25 03:17 06:21 Temperature 97.6 F 98.0 F Pulse Rate [ 72 82 75 Right Radial] Respiratory 18 19 19 Rate Blood Pressure 100/53 L 120/62 101/53 L [Left Arm] O2 Sat by Pulse 99 99 100 Oximetry (%) GENERAL: Awake, alert, and fully oriented, in no acute distress. HEAD: Normal with no signs of trauma. +2 masses at the right frontal area EYES: PERRLA, EOMI, sclera anicteric, conjunctiva clear. EARS, NOSE, THROAT: Moist mucous membranes. NECK: Normal range of motion, supple LUNGS: Breath sounds equal, clear to auscultation bilaterally. HEART: Regular rate and rhythm, normal S1 and S2 ABDOMEN: Soft, nontender, not distended, normoactive bowel sounds, colostomy bag in place MUSCULOSKELETAL: Normal range of motion at all joints. LOWER EXTREMITIES: 2+ pulses, warm, well-perfused. No peripheral edema. +firm mass on the left inner groin, warm with surrounding erythema, incision c/d/i NEUROLOGICAL: Cranial nerves II-XII intact. Normal speech. PSYCHIATRIC: Cooperative. Good eye contact. Appropriate mood and affect. SKIN: Warm, dry, normal turgor. Laboratory Results - last 24 hr 05/14/20 05/14/20 05/14/20 11:20 11:20 11:20 WBC 16.7 H RBC 3.33 L Hgb 8.4 L Hct 26.9 L MCV 80.7 MCH 25.1 L MCHC 31.1 L RDW 22.5 H Plt Count 718 H MPV 7.1 L Absolute Neuts (auto) 15.0 H Neutrophils % 89.8 H Lymphocytes % 5.1 L Monocytes % 3.7 L Eosinophils % 0.8 Basophils % 0.6 Nucleated RBC % 0 Hypochromia 2+ Platelet Estimate Increased Platelet Comment No clumping noted Polychromasia 1+ Poikilocytosis 1+ Anisocytosis 1+ Microcytosis 1+ Tear Drop Cells 1+ Ovalocytes 1+ Stomatocytes 1+ Rouleaux 2+ Retic Count PT with INR 13.80 H INR 1.17 H Sodium 136 Potassium 4.6 Chloride 100 Carbon Dioxide 29 Anion Gap 6 L BUN 20.1 H Creatinine 0.8 Est GFR (CKD-EPI)AfAm 106.38 Est GFR (CKD-EPI)NonAf 91.79 Random Glucose 105 Hemoglobin A1c % Lactic Acid Calcium 9.6 Phosphorus Magnesium Iron TIBC Iron Saturation Unsaturated IBC Ferritin Total Bilirubin 0.7 AST 36 ALT 44 Alkaline Phosphatase 118 H Creatine Kinase 25 L Troponin I < 0.02 Total Protein 8.0 Albumin 2.0 L TSH Urine Color Urine Appearance Urine pH Ur Specific Frederick Urine Protein Urine Glucose (UA) Urine Ketones Urine Blood Urine Nitrite Urine Bilirubin Urine Urobilinogen Ur Leukocyte Esterase Urine WBC (Auto) Urine RBC (Auto) Urine Casts (Auto) U Epithel Cells (Auto) Urine Bacteria (Auto) COVID-19 (TIFFANIE) 05/14/20 05/14/20 05/14/20 17:20 17:20 18:11 WBC RBC Hgb Hct MCV MCH MCHC RDW Plt Count MPV Absolute Neuts (auto) Neutrophils % Lymphocytes % Monocytes % Eosinophils % Basophils % Nucleated RBC % Hypochromia Platelet Estimate Platelet Comment Polychromasia Poikilocytosis Anisocytosis Microcytosis Tear Drop Cells Ovalocytes Stomatocytes Rouleaux Retic Count PT with INR INR Sodium Potassium Chloride Carbon Dioxide Anion Gap BUN Creatinine Est GFR (CKD-EPI)AfAm Est GFR (CKD-EPI)NonAf Random Glucose Hemoglobin A1c % Lactic Acid 2.0 Calcium Phosphorus Magnesium Iron TIBC Iron Saturation Unsaturated IBC Ferritin Total Bilirubin AST ALT Alkaline Phosphatase Creatine Kinase Troponin I Total Protein Albumin TSH Urine Color Yellow Urine Appearance Clear Urine pH 5.0 Ur Specific Frederick 1.049 H Urine Protein Negative Urine Glucose (UA) Negative Urine Ketones Negative Urine Blood Negative Urine Nitrite Negative Urine Bilirubin Negative Urine Urobilinogen 1 Ur Leukocyte Esterase Negative Urine WBC (Auto) 10.1 Urine RBC (Auto) 23.5 Urine Casts (Auto) 0.89 U Epithel Cells (Auto) 6.1 Urine Bacteria (Auto) 6.6 COVID-19 (TIFFANIE) Not detected 05/14/20 05/15/20 05/15/20 18:11 05:58 05:58 WBC RBC Hgb Hct MCV MCH MCHC RDW Plt Count MPV Absolute Neuts (auto) Neutrophils % Lymphocytes % Monocytes % Eosinophils % Basophils % Nucleated RBC % Hypochromia Platelet Estimate Platelet Comment Polychromasia Poikilocytosis Anisocytosis Microcytosis Tear Drop Cells Ovalocytes Stomatocytes Rouleaux Retic Count 2.04 H PT with INR INR Sodium 138 Potassium 4.4 Chloride 105 Carbon Dioxide 31 Anion Gap 3 L BUN 15.8 Creatinine 0.5 L Est GFR (CKD-EPI)AfAm 129.05 Est GFR (CKD-EPI)NonAf 111.35 Random Glucose 78 Hemoglobin A1c % Lactic Acid Calcium 9.0 Phosphorus 3.7 Magnesium 2.5 H Iron 37 L TIBC 202 L Iron Saturation 18 Unsaturated IBC 165 L Ferritin 580.8 H Total Bilirubin 0.4 AST 23 ALT 38 Alkaline Phosphatase 97 Creatine Kinase Troponin I < 0.02 < 0.02 Total Protein 6.7 Albumin 1.9 L TSH 1.72 Urine Color Urine Appearance Urine pH Ur Specific Frederick Urine Protein Urine Glucose (UA) Urine Ketones Urine Blood Urine Nitrite Urine Bilirubin Urine Urobilinogen Ur Leukocyte Esterase Urine WBC (Auto) Urine RBC (Auto) Urine Casts (Auto) U Epithel Cells (Auto) Urine Bacteria (Auto) COVID-19 (TIFFANIE) 05/15/20 05/15/20 05/15/20 05:58 05:58 05:58 WBC 8.2 RBC 3.22 L Hgb 8.2 L Hct 26.2 L MCV 81.2 MCH 25.3 L MCHC 31.2 L RDW 22.1 H Plt Count 643 H MPV 6.9 L Absolute Neuts (auto) 6.5 Neutrophils % 79.5 Lymphocytes % 12.2 D Monocytes % 5.4 Eosinophils % 2.0 D Basophils % 0.9 Nucleated RBC % 0 Hypochromia Platelet Estimate Platelet Comment Polychromasia Poikilocytosis Anisocytosis Microcytosis Tear Drop Cells Ovalocytes Stomatocytes Rouleaux Retic Count PT with INR 13.90 H INR 1.18 H Sodium Potassium Chloride Carbon Dioxide Anion Gap BUN Creatinine Est GFR (CKD-EPI)AfAm Est GFR (CKD-EPI)NonAf Random Glucose Hemoglobin A1c % < 3.5 L Lactic Acid Calcium Phosphorus Magnesium Iron TIBC Iron Saturation Unsaturated IBC Ferritin Total Bilirubin AST ALT Alkaline Phosphatase Creatine Kinase Troponin I Total Protein Albumin TSH Urine Color Urine Appearance Urine pH Ur Specific Frederick Urine Protein Urine Glucose (UA) Urine Ketones Urine Blood Urine Nitrite Urine Bilirubin Urine Urobilinogen Ur Leukocyte Esterase Urine WBC (Auto) Urine RBC (Auto) Urine Casts (Auto) U Epithel Cells (Auto) Urine Bacteria (Auto) COVID-19 (TIFFANIE) Active Medications Generic Name Dose Route Start Last Admin Trade Name Freq PRN Reason Stop Dose Admin Amiodarone HCl 200 mg 05/15/20 10:00 05/15/20 10:28 Cordarone - PO 200 mg DAILY ALE Administration Atorvastatin Calcium 10 mg 05/14/20 22:00 05/14/20 22:19 Lipitor - PO 10 mg HS ALE Administration Collagenase 1 applic 05/15/20 10:00 Santyl - TP DAILY ALE Protocol Docusate Sodium 100 mg 05/15/20 10:00 05/15/20 10:27 Colace - PO 100 mg DAILY ALE Administration Enoxaparin Sodium 40 mg 05/15/20 10:00 05/15/20 10:28 Lovenox - SQ 40 mg DAILY ALE Administration Ferrous Sulfate 325 mg 05/14/20 22:00 05/15/20 10:28 Feosol - PO 325 mg BID LAE Administration Piperacillin Sod/Tazobactam 50 mls @ 100 mls/hr 05/14/20 18:00 05/15/20 10:28 Sod 3.375 gm/ Dextrose IVPB 100 mls/hr Q8H-IV ALE Administration Protocol Sodium Chloride 1,000 mls @ 50 mls/hr 05/14/20 17:00 05/14/20 17:02 Normal Saline - IV 05/15/20 16:56 50 mls/hr ASDIR ALE Administration Mirtazapine 15 mg 05/14/20 22:00 05/14/20 22:19 Remeron - PO 15 mg HS ALE Administration Mupirocin 1 applic 05/15/20 10:00 Bactroban 2% Cream - TP DAILY ALE Non-Formulary Medication 1 applic 05/15/20 10:00 Menthol [Biofreeze] TD DAILY ALE Senna 1 tab 05/15/20 10:00 05/15/20 10:28 Senna - PO 1 tab DAILY ALE Administration ASSESSMENT/PLAN: Patient is a 69 year old male with past medical history of basal cell carcinoma, prostate cancer, HTN, presented to the ED from wound care clinic for left thigh mass. Patient reported he noted the mass on his left inner thigh about 4 days ago. #Left groin mass #Hx of Prostate CA #Hx of BCC -CT LLE w/ contrast : Bony destruction with adjacent soft tissue mass c/w metastatic disease. Central Fluid suggestive of necrosis vs. abscess. 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 Bello's office - radiation oncologist ([phone]) but she's not available today Dispo: We will continue to follow the patient. Thank you for this consultative opportunity. Visit type - Medication Review Med list reviewed for High Risk Meds patients 65 and older: Yes - Emergency Visit Emergency Visit: Yes ED Registration Date: 05/14/20 Care time: The patient presented to the Emergency Department on the above date and was hospitalized for further evaluation of their emergent condition. - New Patient This patient is new to me today: Yes Date on this admission: 05/15/20 - Critical Care Critical Care patient: No ATTENDING PHYSICIAN STATEMENT I saw and evaluated the patient. I reviewed the resident's note and discussed the case with the resident. I agree with the resident's findings and plan as documented. SUBJECTIVE: OBJECTIVE: ASSESSMENT AND PLAN:
[2020-05-15] MEDS: MUPIROCIN CA 2% TOPICAL CREAM 15 GM TUBE TP SCH (11:08)
[2020-05-15] MEDS: COLLAGENASE CLOSTRIDIUM HIST. 30 GRAMS TUBE TP SCH (11:09)
--- NOTE | 2020-05-15 11:16 | PN ---
Progress Note (short form) - Note Progress Note: Vascular Surgery Pt seen yesterday in wound care clinic. Pt had left groin mass, that was warm to touch. We made a incision to drain abscess, but there was not much to drain. Seems like there could be a mass there. Pt sent to ER. CT scan shows tumor. Could be mets from prostate CA in past. Pt will need tissue biopsy from area. Please have IR take biopsy. Please consult Oncology for further workup and treatment. Warner Pisano DO
--- NOTE | 2020-05-15 12:15 | PN ---
Teaching Attending Note Name of Resident: Vashti Rosado ATTENDING PHYSICIAN STATEMENT I saw and evaluated the patient. I reviewed the resident's note and discussed the case with the resident. I agree with the resident's findings and plan as documented. SUBJECTIVE: Seen and examined at bedside. Patient unable to give detailed history of his cancer treatment and seems to confuse dates. States pain is controlled. CT shows multiple metastases to the pelvis and a soft tissue mass consistent with neoplasm, possibly necrotic, in the left leg. OBJECTIVE Last Vital Signs Temp Pulse Resp BP Pulse Ox 97.5 F L 76 18 125/69 95 05/15/20 11:33 05/15/20 11:33 05/15/20 11:33 05/15/20 11:33 05/15/20 11:33 PE: Per resident note Labs/Imaging: reviewed ASSESSMENT/PLAN 69-year-old male past medical history of hypertension, irregular heartbeat of unknown unspecified irregular heartbeat, prostate cancer status post 40 rounds of radiation therapy complicated by colon perforation status post colostomy, multiple episodes of basal cell carcinoma, presents from wound care clinic for chronic wound which was found to be necrotic metastasis. #Complications of metastatic cancer Multiple bone mets to the pelvis and soft tissue mass likely suggestive of metastatic prostate cancer rather than BCC We will obtain records from [facility] regarding cancer treatment as patient is unclear on history Confirm history with patient's sister who he says handles his care IR consulted for possible biopsy Dr. Pisano for wound care, Dr. Ambrosio for ID, heme onc consulted On Zosyn for necrotic soft tissue mass Follow-up cultures #Normocytic anemia with thrombocytosis Iron studies within normal limits: Consistent with anemia of chronic disease On iron tablets as outpatient, will hold for now #Hypertension Blood pressure borderline low, holding home amlodipine and metoprolol #HLD Continue home statin
[2020-05-15 13:44] VITALS: BMI 18.8
--- NOTE | 2020-05-15 15:16 | PN ---
Teaching Attending Note Name of Resident: Arin Gao ATTENDING PHYSICIAN STATEMENT I saw and evaluated the patient. I reviewed the resident's note and discussed the case with the resident. I agree with the resident's findings and plan as documented. SUBJECTIVE: Pain in his L leg ASSESSMENT AND PLAN: 69 year old gentleman with past medical history of basal cell carcinoma, prostate cancer, HTN, and irregular heart rate, presented to the ED from wound care clinic for left thigh mass. Patient reported he noted the mass on his left inner thigh about 4 days ago, reported to be soft. No fevers, chills, no pain or surrounding redness. An attempt to drain the mass was done but no fluid was obtained, he had an apparent episode of dizziness and as sent to the ED. We are consulted due the mass and prior history of BCC and Prostate CA. Recommend: 1) ID evaluation. 2) IR evaluation for possible core needle biopsy (avoid FNA if possible) 3) Please have patient to follow with Dermatology for BCC. Has 2 prominent lesions in his R forehead (~ 4 cm). 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 4) Prostate CA f/u with his primary oncologist/urologist 5) Rest as per Dr. Gao note 6) Thank you for this consultation
--- NOTE | 2020-05-15 16:04 | PN ---
Physical Exam: SUBJECTIVE: Patient seen and examined at bedside. No acute events overnight. OBJECTIVE: Vital Signs Period Temp Pulse Resp BP Sys/Dowling Pulse Ox Last 24 Hr 97.5 F-98.1 F 72-83 18-20 100-141/53-76 95-100 GENERAL: Awake, alert, and in no acute distress, thin and cachectic HEAD: Normal with no signs of trauma. Left frontal masses(BCC?) EYES: Sclera anicteric, conjunctiva clear. EARS, NOSE, THROAT: Ears normal, nares patent, oropharynx clear without exudates. Moist mucous membranes. NECK: Normal range of motion, supple without lymphadenopathy, JVD, or masses. LUNGS: Breath sounds equal anteriorly, clear to auscultation bilaterally. No wheezes, and no crackles. HEART: Faint Heart sounds, Regular rate and rhythm, normal S1 and S2 without murmur. R. Central line into subclavian ABDOMEN: Soft, nontender, not distended, normoactive bowel sounds, no guarding, no rebound, no masses. UPPER EXTREMITIES: 2+ radial pulses, warm, well-perfused. No cyanosis. No peripheral edema. LOWER EXTREMITIES: 2+ dorsal pedal pulses, warm, well-perfused. No calf tenderness. No peripheral edema. L. groin mass non-tender to palpation, no drainage, no erythema, no fluctuance. NEUROLOGICAL: 5/5 muscle strength throughout, sensation intact. Normal speech. Gait not assessed. PSYCHIATRIC: Cooperative. Good eye contact. Appropriate mood and affect. SKIN: Rash on chest? Pt. states they were areas where BCC were frozen, R. wrist lesion CBCD WBC 8.2 K/mm3 (4.0-10.0) 05/15/20 05:58 RBC 3.22 M/mm3 (4.00-5.60) L 05/15/20 05:58 Hgb 8.2 GM/dL (11.7-16.9) L 05/15/20 05:58 Hct 26.2 % (35.4-49) L 05/15/20 05:58 MCV 81.2 fl (80-96) 05/15/20 05:58 MCHC 31.2 g/dl (32.0-35.9) L 05/15/20 05:58 RDW 22.1 % (11.9-15.9) H 05/15/20 05:58 Plt Count 643 K/MM3 (134-434) H 05/15/20 05:58 MPV 6.9 fl (7.5-11.1) L 05/15/20 05:58 CMP Sodium 138 mmol/L (136-145) 05/15/20 05:58 Potassium 4.4 mmol/L (3.5-5.1) 05/15/20 05:58 Chloride 105 mmol/L (98-107) 05/15/20 05:58 Carbon Dioxide 31 mmol/L (21-32) 05/15/20 05:58 Anion Gap 3 MMOL/L (8-16) L 05/15/20 05:58 BUN 15.8 mg/dL (7-18) 05/15/20 05:58 Creatinine 0.5 mg/dL (0.55-1.3) L 05/15/20 05:58 Calcium 9.0 mg/dL (8.5-10.1) 05/15/20 05:58 Total Bilirubin 0.4 mg/dL (0.2-1) 05/15/20 05:58 AST 23 U/L (15-37) 05/15/20 05:58 ALT 38 U/L (13-61) 05/15/20 05:58 Alkaline Phosphatase 97 U/L (45-117) 05/15/20 05:58 Total Protein 6.7 g/dl (6.4-8.2) 05/15/20 05:58 Albumin 1.9 g/dl (3.4-5.0) L 05/15/20 05:58 Active Medications Generic Name Dose Route Start Last Admin Trade Name Freq PRN Reason Stop Dose Admin Amiodarone HCl 200 mg 05/15/20 10:00 05/15/20 10:28 Cordarone - PO 200 mg DAILY ALE Administration Atorvastatin Calcium 10 mg 05/14/20 22:00 05/14/20 22:19 Lipitor - PO 10 mg HS ALE Administration Collagenase 1 applic 05/15/20 10:00 05/15/20 11:09 Santyl - TP 1 applic DAILY ALE Administration Protocol Docusate Sodium 100 mg 05/15/20 10:00 05/15/20 10:27 Colace - PO 100 mg DAILY ALE Administration Enoxaparin Sodium 40 mg 05/15/20 10:00 05/15/20 10:28 Lovenox - SQ 40 mg DAILY ALE Administration Ferrous Sulfate 325 mg 05/14/20 22:00 05/15/20 10:28 Feosol - PO 325 mg BID ALE Administration Piperacillin Sod/Tazobactam 50 mls @ 100 mls/hr 05/14/20 18:00 05/15/20 10:28 Sod 3.375 gm/ Dextrose IVPB 100 mls/hr Q8H-IV ALE Administration Protocol Sodium Chloride 1,000 mls @ 50 mls/hr 05/14/20 17:00 05/14/20 17:02 Normal Saline - IV 05/15/20 16:56 50 mls/hr ASDIR ALE Administration Mirtazapine 15 mg 05/14/20 22:00 05/14/20 22:19 Remeron - PO 15 mg HS ALE Administration Mupirocin 1 applic 05/15/20 10:00 05/15/20 11:08 Bactroban 2% Cream - TP 1 applic DAILY ALE Administration Non-Formulary Medication 1 applic 05/15/20 10:00 Menthol [Biofreeze] TD DAILY ALE Senna 1 tab 05/15/20 10:00 05/15/20 10:28 Senna - PO 1 tab DAILY ALE Administration ASSESSMENT/PLAN: 69M w/ pmhx of HTN, Irregular Heart Rate? (pt denies being told he has Afib), hx of BCC (s/p removal with various mechanisms over the last 20+ years), and Prostate CA(s/p 40 rounds of RT, complicated by colon perforation, s/p colostomy) presents from Wound Care for chronic wound that was not draining on today at the center. Hospital course complicated by syncope. #Metastatic Cancer -Multiple bone mets to the pelvis and soft tissue mass likely suggestive of metastatic prostate cancer rather than BCC -Record release sent out to [facility] for previous cancer work up -ID and Wound care Consults appreciated -Heme/Onc and IR consults appreciated for biopsy and analysis of tissue -CT LLE w/ contrast reviewed, Bony destruction with adjacent soft tissue mass c/w metastatic disease. Central Fluid suggestive of necrosis -vs. abcess. -Received 6 weeks of Vancomycin; received Zosyn and Vancomycin in ED -Cont Zosyn 3.375 gm q8H IV (started 05/14/20) -PET Scan outpatient, Pt. needs PCP -Will need derm follow up for BCC #? Afib -Cardio consulted -Denies being on AC #Malnutrition -Dietary consult #Syncope; likely 2/2 dehydration vs. vasovagal. -EKG wnl -Cardio consulted Consider cardiology consult appreciated for cardiac clarification and assistance in risk stratification given Malignancy and potential need for invasive procedures. Pt. has significant family history of KS in ALL brother and Father in their 40s. -Hold Metoprolol -C/w Amiodarone -Pt. not on AC and is unsure why, has hx of major bleeding within the past 3 months. -resume Remeron #Normocytic Anemia; likely 2/2 to bone malignancy -Iron studies wnl -Pt. has 2 active malignancies with known metastases, will continue DVT Ppx #HTN/HLD; Cont home med: Atorvastatin 10 HS. Hold home BP medications, restart when appropriate #FEN -PO hydration -monitor electrolytes, replete as needed -Normal Diet #Prophylaxis DVT: Lovenox 40 Dispo -cont to monitor on tele; will need NH on discharge, comes from [facility], Family asking to go to another facility, [facility]? -Code Status needs to be addressed -Medications reconciled Visit type - Emergency Visit Emergency Visit: Yes ED Registration Date: 05/14/20 Care time: The patient presented to the Emergency Department on the above date and was hospitalized for further evaluation of their emergent condition. - New Patient This patient is new to me today: Yes Date on this admission: 05/15/20 - Critical Care Critical Care patient: No - Discharge Referral Referred to [facility] Med P.C.: No - Medication Review Med list reviewed for High Risk Meds patients 65 and older: Yes ATTENDING PHYSICIAN STATEMENT I saw and evaluated the patient. I reviewed the resident's note and discussed the case with the resident. I agree with the resident's findings and plan as documented. SUBJECTIVE: OBJECTIVE: ASSESSMENT AND PLAN:
[2020-05-15] MEDS ORDERED: PIPERACILLIN/TAZOBACTAM 3.375 GM VIAL IVPB ONE (16:32)
[2020-05-15] MEDS ORDERED: DEXTROSE 5%-WATER - 50 ML IVPB ONE (16:33)
[2020-05-15] MEDS: MIRTAZAPINE 15 MG TABLET (FP) PO SCH (21:29)
[2020-05-15] MEDS: ATORVASTATIN CA 10 MG TABLET (FP) PO SCH (21:29)
[2020-05-16] MEDS ORDERED: DEXTROSE 5%-WATER - 50 ML IVPB ONE ×3 (02:45→17:01)
[2020-05-16] MEDS ORDERED: PIPERACILLIN/TAZOBACTAM 3.375 GM VIAL IVPB ONE ×3 (02:45→17:01)
[2020-05-16] MEDS: PIPERACILLIN/TAZOB 3.375 GM 3.375 GM in DEXTROSE 5%-WATER - 50 ML IVPB SCH ×3 (02:49→17:20)
[2020-05-16 07:11] LABS: BASO % 0.7 % (0-2.0); EOS % 1.8 % (0-4.5); HEMATOCRIT 25.9 % (35.4-49); HEMOGLOBIN 8.1 GM/dL (11.7-16.9); LYMPH % 11.9 % (8-40); MCH 25.4 pg (25.7-33.7); MCHC 31.4 g/dl (32.0-35.9); MEAN CELL VOLUME 80.7 fl (80-96); MEAN PLT VOLUME 6.7 fl (7.5-11.1); MONO % 4.7 % (3.8-10.2); NEUT % 80.9 % (42.8-82.8); PLATELET COUNT 674 K/MM3 (134-434); RBC 3.21 M/mm3 (4.00-5.60); RDW 22.1 % (11.9-15.9); WHITE BLOOD COUNT 8.5 K/mm3 (4.0-10.0)
[2020-05-16 07:44] LABS: ALBUMIN 2.1 g/dl (3.4-5.0); BLOOD UREA NITROGEN 13.2 mg/dL (7-18); CALCIUM 8.9 mg/dL (8.5-10.1); CREATININE 0.7 mg/dL (0.55-1.3); MAGNESIUM 2.3 mg/dL (1.8-2.4); PHOSPHOROUS 3.6 mg/dL (2.5-4.9); POTASSIUM 4.7 mmol/L (3.5-5.1); TOT PROT 6.7 g/dl (6.4-8.2)
[2020-05-16] MEDS: SENNOSIDES 8.6MG TABLET (FP) PO SCH (10:03)
[2020-05-16] MEDS: FERROUS SO4 325 MG TABLET (FP) PO SCH ×2 (10:03→21:50)
[2020-05-16] MEDS: DOCUSATE SODIUM 100 MG CAPSULE (FP) PO SCH (10:03)
--- NOTE | 2020-05-16 11:01 | EKG ---
Test Reason : Blood Pressure : / mmHG Vent. Rate : 072 BPM Atrial Rate : 072 BPM P-R Int : 144 ms QRS Dur : 092 ms QT Int : 446 ms P-R-T Axes : 069 051 069 degrees QTc Int : 488 ms NORMAL SINUS RHYTHM PROLONGED QT ABNORMAL ECG NO PREVIOUS ECGS AVAILABLE Confirmed by MD MAYA, FAVIAN ([id number]) on 05/16/2020 11:01:53 AM Referred By: Phillip AVINA Confirmed By:FAVIAN TREJO MD
--- NOTE | 2020-05-16 11:29 | PN ---
Progress Note, Physician History of Present Illness: Underwent IR biopsy of groin mass. Denies recurrent near or true syncope, palpitations, chest tightness or dyspnea. - Current Medication List Current Medications: Active Medications Atorvastatin Calcium (Lipitor -) 10 mg PO HS ALE Last Admin: 05/15/20 21:29 Dose: 10 mg Documented by: Collagenase (Santyl -) 1 applic TP DAILY [facility]; Protocol Last Admin: 05/15/20 11:09 Dose: 1 applic Documented by: Docusate Sodium (Colace -) 100 mg PO DAILY ALE Last Admin: 05/16/20 10:03 Dose: 100 mg Documented by: Enoxaparin Sodium (Lovenox -) 40 mg SQ DAILY ALE Last Admin: 05/15/20 10:28 Dose: 40 mg Documented by: Ferrous Sulfate (Feosol -) 325 mg PO BID ALE Last Admin: 05/16/20 10:03 Dose: 325 mg Documented by: Piperacillin Sod/Tazobactam (Sod 3.375 gm/ Dextrose) 50 mls @ 100 mls/hr IVPB Q8H-IV ALE; Protocol Last Admin: 05/16/20 02:49 Dose: 100 mls/hr Documented by: Mirtazapine (Remeron -) 15 mg PO HS ALE Last Admin: 05/15/20 21:29 Dose: 15 mg Documented by: Mupirocin (Bactroban 2% Cream -) 1 applic TP DAILY ALE Last Admin: 05/15/20 11:08 Dose: 1 applic Documented by: Non-Formulary Medication (Menthol [Biofreeze]) 1 applic TD DAILY ALE Senna (Senna -) 1 tab PO DAILY ALE Last Admin: 05/16/20 10:03 Dose: 1 tab Documented by: - Objective Vital Signs: Vital Signs Temperature 98.8 F 05/16/20 05:29 Pulse Rate 73 05/16/20 05:29 Respiratory Rate 18 05/16/20 05:29 Blood Pressure 105/58 L 05/16/20 05:29 O2 Sat by Pulse Oximetry (%) 98 05/16/20 05:29 Constitutional: Yes: No Distress, Calm Neck: Yes: Supple Cardiovascular: Yes: Regular Rate and Rhythm Respiratory: Yes: Regular, CTA Bilaterally Gastrointestinal: Yes: Normal Bowel Sounds, Soft Edema: No Labs: CBC, BMP 05/16/20 06:20 05/16/20 06:20 INR, PTT INR 1.18 (0.83-1.09) H 05/15/20 05:58 - ....Imaging EKG: Report Reviewed (NSR @ 72) Assessment/Plan - Problems (1) HTN (hypertension) Code(s): I10 - ESSENTIAL (PRIMARY) HYPERTENSION (2) Hypercholesterolemia Code(s): E78.00 - PURE HYPERCHOLESTEROLEMIA, UNSPECIFIED (3) Prostate CA Code(s): C61 - MALIGNANT NEOPLASM OF PROSTATE (4) Pre-syncope Code(s): R55 - SYNCOPE AND COLLAPSE Assessment/Plan 05/16/2020 Echo: Normal LV and RV size and fxn, no sig valve abnl 05/16/2020 ECG: NSR @ 72 1. Left thigh mass, etiology to be determined, suspect malignancy 2. HTN 3. Prostate CA s/p RT c/b colon perforation requiring colostomy 4. Multiple bone mets to the pelvis and soft tissue mass likely suggestive of metastatic prostate cancer 5. Near syncope ?vasovagal 6. BCC 7. Hypercholesterolemia 8. Anemia of chronic disease PLAN: 1. Amiodarone d/sara 2. Resume Toprol XL 25 qd as hemodynamics tolerate 3. 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 Atorvastatin 10 mg QHS 6. Antibiotic coverage
--- NOTE | 2020-05-16 13:14 | PN ---
Teaching Attending Note Name of Resident: Mariaelena Pringle ATTENDING PHYSICIAN STATEMENT I saw and evaluated the patient. I reviewed the resident's note and discussed the case with the resident. I agree with the resident's findings and plan as documented. UBJECTIVE: Seen and examined at bedside. Pending confirmation of IR biopsy of left lower extremity mass and oncology evaluation. Requested been sent to multiple hospitals to obtain patient's previous medical records, pending documentation. OBJECTIVE Last Vital Signs Temp Pulse Resp BP Pulse Ox 98.2 F 92 H 15 109/80 100 05/16/20 10:00 05/16/20 12:59 05/16/20 12:59 05/16/20 12:59 05/16/20 12:59 PE: Per resident note Labs/Imaging: reviewed ASSESSMENT/PLAN 69-year-old male past medical history of hypertension, irregular heartbeat of unknown unspecified irregular heartbeat, prostate cancer status post 40 rounds of radiation therapy complicated by colon perforation status post colostomy, multiple episodes of basal cell carcinoma, presents from wound care clinic for chronic wound which was found to be likely necrotic metastasis. #Complications of metastatic cancer Multiple bone mets to the pelvis and soft tissue mass likely suggestive of metastatic prostate cancer rather than BCC Patient has significantly disorganized care and it is unclear who is following him for his multiple cancers and what, if any, treatment was planned We will obtain records from [place] and other hospitals regarding cancer treatment as patient/family is unclear on history IR consulted for possible biopsy Dr. Pisano for wound care, Dr. Ambrosio for ID, heme onc consulted On Zosyn for necrotic soft tissue mass Follow-up cultures #Normocytic anemia with thrombocytosis Iron studies within normal limits: Consistent with anemia of chronic disease On iron tablets as outpatient, will hold for now #Hypertension Blood pressure borderline low, holding home amlodipine and metoprolol #HLD Continue home statin
[2020-05-16] MEDS: COLLAGENASE CLOSTRIDIUM HIST. 30 GRAMS TUBE TP SCH (13:20)
[2020-05-16] MEDS: MUPIROCIN CA 2% TOPICAL CREAM 15 GM TUBE TP SCH (13:21)
--- NOTE | 2020-05-16 13:32 | PN ---
Physical Exam: SUBJECTIVE: Patient seen and examined at bedside no acute events overnight; patient states that he is feeling ok though he is anxious about whats going on with his condition and is also anxous to to leave- he is going for IR biopsy today- he denies any CP/SOB/NV- no tele events OBJECTIVE: Vital Signs Period Temp Pulse Resp BP Sys/Dowling Pulse Ox Last 24 Hr 97.7 F-98.8 F 72-92 14-20 101-141/57-80 98-100 GENERAL: The patient is awake, alert, and fully oriented, in no acute distress. EYES: PEERLA: EOMI no scleral icterus . NECK:no JVD; no lymphadenoapthy LUNGS: CTA B/L no rales, rhonchi HEART: Regular rate and rhythm, S1, S2 without murmur, rub or gallop. ABDOMEN: Soft, NT ND +BS in all 4 quadrants EXTREMITIES: 2+ pulses, warm, well-perfused, no edema. PSYCH: Normal mood, normal affect. SKIN: Warm, dry, normal turgor, no rashes or lesions noted Laboratory Results - last 24 hr 05/14/20 05/16/20 05/16/20 18:11 06:20 06:20 WBC 8.5 RBC 3.21 L Hgb 8.1 L Hct 25.9 L MCV 80.7 MCH 25.4 L MCHC 31.4 L RDW 22.1 H Plt Count 674 H MPV 6.7 L Absolute Neuts (auto) 6.9 Neutrophils % 80.9 Lymphocytes % 11.9 Monocytes % 4.7 Eosinophils % 1.8 Basophils % 0.7 Nucleated RBC % 0 Sodium 141 Potassium 4.7 Chloride 106 Carbon Dioxide 30 Anion Gap 5 L BUN 13.2 Creatinine 0.7 Est GFR (CKD-EPI)AfAm 112.38 Est GFR (CKD-EPI)NonAf 96.97 Random Glucose 85 Calcium 8.9 Phosphorus 3.6 Magnesium 2.3 Total Bilirubin 1.0 AST 24 ALT 36 Alkaline Phosphatase 92 Total Protein 6.7 Albumin 2.1 L Prostate Specific Ag < 0.10 Active Medications Generic Name Dose Route Start Last Admin Trade Name Freq PRN Reason Stop Dose Admin Atorvastatin Calcium 10 mg 05/14/20 22:00 05/15/20 21:29 Lipitor - PO 10 mg HS ALE Administration Collagenase 1 applic 05/15/20 10:00 05/16/20 13:20 Santyl - TP 1 applic DAILY ALE Administration Protocol Docusate Sodium 100 mg 05/15/20 10:00 05/16/20 10:03 Colace - PO 100 mg DAILY ALE Administration Enoxaparin Sodium 40 mg 05/15/20 10:00 05/15/20 10:28 Lovenox - SQ 40 mg DAILY ALE Administration Ferrous Sulfate 325 mg 05/14/20 22:00 05/16/20 10:03 Feosol - PO 325 mg BID ALE Administration Piperacillin Sod/Tazobactam 50 mls @ 100 mls/hr 05/14/20 18:00 05/16/20 13:20 Sod 3.375 gm/ Dextrose IVPB 100 mls/hr Q8H-IV ALE Administration Protocol Mirtazapine 15 mg 05/14/20 22:00 05/15/20 21:29 Remeron - PO 15 mg HS ALE Administration Mupirocin 1 applic 05/15/20 10:00 05/16/20 13:21 Bactroban 2% Cream - TP Not Given DAILY ALE Non-Formulary Medication 1 applic 05/15/20 10:00 Menthol [Biofreeze] TD DAILY ALE Senna 1 tab 05/15/20 10:00 05/16/20 10:03 Senna - PO 1 tab DAILY ALE Administration ASSESSMENT/PLAN: 9M w/ pmhx of HTN, Irregular Heart Rate? (pt denies being told he has Afib), hx of BCC (s/p removal with various mechanisms over the last 20+ years), and Prostate CA(s/p 40 rounds of RT, complicated by colon perforation, s/p colostomy) presents from Wound Care for chronic wound that was not draining on today at the center. Hospital course complicated by syncope. #Metastatic Cancer -Multiple bone mets to the pelvis and soft tissue mass likely suggestive of metastatic prostate cancer rather than BCC -Record release sent out to [facility] for previous cancer work up -ID and Wound care Consults appreciated -going today for IR guided biopsy -Heme/Onc and IR consults appreciated -CT LLE w/ contrast reviewed, Bony destruction with adjacent soft tissue mass c/w metastatic disease. Central Fluid suggestive of necrosis -vs. abcess. -Received 6 weeks of Vancomycin; received Zosyn and Vancomycin in ED -Cont Zosyn 3.375 gm q8H IV (started 05/14/20) -PET Scan outpatient, Pt. needs PCP -Will need derm follow up for BCC #? Afib -Cardio consulted -Denies being on AC #Malnutrition -Dietary consult #Syncope; likely 2/2 dehydration vs. vasovagal. -EKG wnl -Cardio consulted Consider cardiology consult appreciated for -Hold Metoprolol -C/w Amiodarone -Pt. not on AC and is unsure why, has hx of major bleeding within the past 3 months. -resume Remeron #Normocytic Anemia; likely 2/2 to bone malignancy -Iron studies wnl -Pt. has 2 active malignancies with known metastases, will continue DVT Ppx #HTN/HLD; Cont home med: Atorvastatin 10 HS. Hold home BP medications, restart when appropriate #FEN -PO hydration -monitor electrolytes, replete as needed -Normal Diet #Prophylaxis DVT: Lovenox 40 Dispo -cont to monitor on tele; will need NH on discharge, comes from [facility], Family asking to go to another facility, [place]? -Code Status needs to be addressed -Medications reconciled Problem List - Problems (1) Abscess Code(s): L02.91 - CUTANEOUS ABSCESS, UNSPECIFIED (2) Cancer Code(s): C80.1 - MALIGNANT (PRIMARY) NEOPLASM, UNSPECIFIED (3) HTN (hypertension) Code(s): I10 - ESSENTIAL (PRIMARY) HYPERTENSION (4) Hypercholesterolemia Code(s): E78.00 - PURE HYPERCHOLESTEROLEMIA, UNSPECIFIED (5) Pre-syncope Code(s): R55 - SYNCOPE AND COLLAPSE Visit type - Emergency Visit Emergency Visit: Yes ED Registration Date: 05/14/20 Care time: The patient presented to the Emergency Department on the above date and was hospitalized for further evaluation of their emergent condition. - New Patient This patient is new to me today: Yes Date on this admission: 05/16/20 - Critical Care Critical Care patient: No - Medication Review Med list reviewed for High Risk Meds patients 65 and older: Yes ATTENDING PHYSICIAN STATEMENT I saw and evaluated the patient. I reviewed the resident's note and discussed the case with the resident. I agree with the resident's findings and plan as documented. SUBJECTIVE: OBJECTIVE: ASSESSMENT AND PLAN:
--- NOTE | 2020-05-16 15:41 | ECHO ---
Version: 1 Name: LYNN GILES Exam: Adult Echocardiogram Study Date: 05/16/2020, 11:21 AM Age: 69 Years MMode/2D Measurements & Calculations IVSd: 0.99 cm LVIDs: 2.5 cm LVIDd: 3.7 cm LVPWd: 0.97 cm LVOT diam: 1.96 cm Ao root diam: 3.0 cm LA dimension: 3.4 cm Doppler Measurements & Calculations Ao max P.06 mmHg Ao V2 max: 51.6 cm/sec Procedure A two-dimensional transthoracic echocardiogram with color flow and Doppler was performed. The study was technically difficult with many images being suboptimal in quality. The study was technically limite d with all images being suboptimal in quality. The patient was in normal sinus rhythm during the exam. Left Ventricle The left ventricle is not well visualized. The left ventricle is grossly normal size. Left ventricul ar systolic function is grossly normal. Ejection Fraction = 60-65%. Right Ventricle The right ventricle is not well visualized. The right ventricle is grossly normal size. The right ve ntricular systolic function is grossly normal. Atria The left atrial size is normal. Right atrium not well visualized. Mitral Valve The mitral valve is not well visualized. There is moderate mitral annular calcification. There is no mitral regurgitation noted. Tricuspid Valve The tricuspid valve is normal. No tricuspid regurgitation. There was insufficient TR detected to grazyna culate RV systolic pressure. Aortic Valve The aortic valve is not well visualized. The aortic valve opens well. Fibrocalcific aortic valve wit hout stenosis. No aortic regurgitation is present. Pulmonic Valve The pulmonic valve is not well visualized. Great Vessels The aortic root is normal size. Pericardium/Pleura There is no pericardial effusion. Summary Statements The study was technically difficult with many images being suboptimal in quality. The study was technically limited with all images being suboptimal in quality. Left ventricular systolic function is grossly normal. The right ventricular systolic function is grossly normal. There is moderate mitral annular calcification. Fibrocalcific aortic valve without stenosis. MD Federico Hernandez 05/16/2020, 3:41 PM Ordering Physician: Kenney Barrett Performed By: Teodora Vaca
[2020-05-16] MEDS: MIRTAZAPINE 15 MG TABLET (FP) PO SCH (21:50)
[2020-05-16] MEDS: ATORVASTATIN CA 10 MG TABLET (FP) PO SCH (21:50)
[2020-05-17] MEDS ORDERED: PIPERACILLIN/TAZOBACTAM 3.375 GM VIAL IVPB ONE ×2 (03:26→09:19)
[2020-05-17] MEDS: PIPERACILLIN/TAZOB 3.375 GM 3.375 GM in DEXTROSE 5%-WATER - 50 ML IVPB SCH ×2 (03:30→10:09)
[2020-05-17 08:09] LABS: BASO % 0.6 % (0-2.0); EOS % 1.2 % (0-4.5); HEMOGLOBIN 8.5 GM/dL (11.7-16.9); LYMPH % 12.5 % (8-40); MCH 25.7 pg (25.7-33.7); MCHC 31.6 g/dl (32.0-35.9); MEAN CELL VOLUME 81.4 fl (80-96); MEAN PLT VOLUME 6.9 fl (7.5-11.1); MONO % 5.4 % (3.8-10.2); NEUT % 80.3 % (42.8-82.8); PLATELET COUNT 696 K/MM3 (134-434); RBC 3.31 M/mm3 (4.00-5.60); RDW 22.5 % (11.9-15.9); WHITE BLOOD COUNT 10.9 K/mm3 (4.0-10.0)
[2020-05-17 08:34] LABS: POTASSIUM 4.2 mmol/L (3.5-5.1)
[2020-05-17] MEDS ORDERED: BISACODYL 5 MG TABLET.DR (FP) PO PRN (09:02)
[2020-05-17 09:12] LABS: ALBUMIN 2.1 g/dl (3.4-5.0); BILIRUBIN,TOTAL 0.4 mg/dL (0.2-1); BLOOD UREA NITROGEN 15.1 mg/dL (7-18); CALCIUM 9.4 mg/dL (8.5-10.1); CREATININE 0.7 mg/dL (0.55-1.3); MAGNESIUM 2.5 mg/dL (1.8-2.4); PHOSPHOROUS 3.3 mg/dL (2.5-4.9); TOT PROT 6.8 g/dl (6.4-8.2)
[2020-05-17] MEDS ORDERED: DEXTROSE 5%-WATER - 50 ML IVPB ONE (09:19)
--- NOTE | 2020-05-17 09:28 | PN ---
Progress Note, Physician History of Present Illness: Underwent IR biopsy of groin mass and abscess drainage. Denies recurrent near or true syncope, palpitations, chest tightness or dyspnea. - Current Medication List Current Medications: Active Medications Atorvastatin Calcium (Lipitor -) 10 mg PO HS ALE Last Admin: 05/16/20 21:50 Dose: 10 mg Documented by: Bisacodyl (Dulcolax -) 5 mg PO DAILY PRN PRN Reason: CONSTIPATION Collagenase (Santyl -) 1 applic TP DAILY ALE; Protocol Last Admin: 05/16/20 13:20 Dose: 1 applic Documented by: Docusate Sodium (Colace -) 100 mg PO DAILY ALE Last Admin: 05/16/20 10:03 Dose: 100 mg Documented by: Enoxaparin Sodium (Lovenox -) 40 mg SQ DAILY ALE Last Admin: 05/15/20 10:28 Dose: 40 mg Documented by: Ferrous Sulfate (Feosol -) 325 mg PO BID ALE Last Admin: 05/16/20 21:50 Dose: 325 mg Documented by: Piperacillin Sod/Tazobactam (Sod 3.375 gm/ Dextrose) 50 mls @ 100 mls/hr IVPB Q8H-IV ALE; Protocol Last Admin: 05/17/20 03:30 Dose: 100 mls/hr Documented by: Mirtazapine (Remeron -) 15 mg PO HS ALE Last Admin: 05/16/20 21:50 Dose: 15 mg Documented by: Mupirocin (Bactroban 2% Cream -) 1 applic TP DAILY ALE Last Admin: 05/16/20 13:21 Dose: Not Given Documented by: Non-Formulary Medication (Menthol [Biofreeze]) 1 applic TD DAILY [facility] Senna (Senna -) 1 tab PO DAILY ALE Last Admin: 05/16/20 10:03 Dose: 1 tab Documented by: - Objective Vital Signs: Vital Signs Temperature 98 F 05/17/20 06:00 Pulse Rate 74 05/17/20 06:00 Respiratory Rate 20 05/17/20 06:00 Blood Pressure 119/57 L 05/17/20 06:00 O2 Sat by Pulse Oximetry (%) 98 05/17/20 02:00 Constitutional: Yes: No Distress, Calm, Thin Neck: Yes: Supple Cardiovascular: Yes: Regular Rate and Rhythm Respiratory: Yes: Regular, CTA Bilaterally Gastrointestinal: Yes: Normal Bowel Sounds, Soft Edema: No Labs: CBC, BMP 05/17/20 07:20 05/17/20 07:20 INR, PTT INR 1.18 (0.83-1.09) H 05/15/20 05:58 - ....Imaging EKG: Report Reviewed (Tele NSR) Assessment/Plan - Problems (1) HTN (hypertension) Code(s): I10 - ESSENTIAL (PRIMARY) HYPERTENSION (2) Hypercholesterolemia Code(s): E78.00 - PURE HYPERCHOLESTEROLEMIA, UNSPECIFIED (3) Prostate CA Code(s): C61 - MALIGNANT NEOPLASM OF PROSTATE (4) Pre-syncope Code(s): R55 - SYNCOPE AND COLLAPSE Assessment/Plan 05/16/2020 Echo: Normal LV and RV size and fxn, no sig valve abnl 05/16/2020 ECG: NSR @ 72 1. Left thigh mass, etiology to be determined, suspect malignancy 2. HTN 3. Prostate CA s/p RT c/b colon perforation requiring colostomy 4. Multiple bone mets to the pelvis and soft tissue mass likely suggestive of metastatic prostate cancer 5. Near syncope ?vasovagal 6. BCC 7. Hypercholesterolemia 8. Anemia of chronic disease PLAN: 1. Amiodarone d/sara 2. Resume Toprol XL 25 qd as hemodynamics tolerate 3. 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 Atorvastatin 10 mg QHS 6. Antibiotic coverage
[2020-05-17] MEDS: DOCUSATE SODIUM 100 MG CAPSULE (FP) PO SCH (10:09)
[2020-05-17] MEDS: FERROUS SO4 325 MG TABLET (FP) PO SCH ×2 (10:09→22:26)
[2020-05-17] MEDS: MUPIROCIN CA 2% TOPICAL CREAM 15 GM TUBE TP SCH (10:09)
[2020-05-17] MEDS: COLLAGENASE CLOSTRIDIUM HIST. 30 GRAMS TUBE TP SCH (10:09)
[2020-05-17] MEDS: SENNOSIDES 8.6MG TABLET (FP) PO SCH (10:09)
--- NOTE | 2020-05-17 11:14 | PN ---
Teaching Attending Note Name of Resident: Mariaelena Pringle ATTENDING PHYSICIAN STATEMENT I saw and evaluated the patient. I reviewed the resident's note and discussed the case with the resident. I agree with the resident's findings and plan as documented. SUBJECTIVE: OBJECTIVE: ASSESSMENT AND PLAN: 69 year old Male w/ pmhx of HTN, Irregular Heart Rate? (pt denies being told he has Afib), hx of BCC (s/p removal with various mechanisms over the last 20+ years), and Prostate CA(s/p 40 rounds of RT, complicated by colon perforation, s/p colostomy) presents from Wound Care for chronic wound that was not draining on today at the center. Hospital course complicated by syncope. #Metastatic Cancer -Multiple bone mets to the pelvis and soft tissue mass likely suggestive of metastatic prostate cancer rather than BCC -Record release sent out to [facility] for previous cancer work up -ID and Wound care Consults appreciated -going today for IR guided biopsy -Heme/Onc and IR consults appreciated -CT LLE w/ contrast reviewed, Bony destruction with adjacent soft tissue mass c/w metastatic disease. Central Fluid suggestive of necrosis -vs. abcess. -Received 6 weeks of Vancomycin; received Zosyn and Vancomycin in ED -Cont Zosyn 3.375 gm q8H IV (started 05/14/20) -PET Scan outpatient, Pt. needs PCP -Will need derm follow up for BCC #? Afib -Cardio consulted -Denies being on AC #Malnutrition -Dietary consult #Syncope; likely 2/2 dehydration vs. vasovagal. -EKG wnl -Cardio consulted Consider cardiology consult appreciated for -Hold Metoprolol -C/w Amiodarone -Pt. not on AC and is unsure why, has hx of major bleeding within the past 3 months. -resume Remeron #Normocytic Anemia; likely 2/2 to bone malignancy -Iron studies wnl -Pt. has 2 active malignancies with known metastases, will continue DVT Ppx #HTN/HLD; Cont home med: Atorvastatin 10 HS. Hold home BP medications, restart when appropriate #FEN -PO hydration -monitor electrolytes, replete as needed -Normal Diet #Prophylaxis DVT: Lovenox 40 Dispo -cont to monitor on tele; will need NH on discharge, comes from [facility], Family asking to go to another facility, [place]? -Code Status needs to be addressed -Medications reconciled Problem List - Problems (1) Abscess Code(s): L02.91 - CUTANEOUS ABSCESS, UNSPECIFIED (2) Cancer Code(s): C80.1 - MALIGNANT (PRIMARY) NEOPLASM, UNSPECIFIED (3) HTN (hypertension) Code(s): I10 - ESSENTIAL (PRIMARY) HYPERTENSION (4) Hypercholesterolemia Code(s): E78.00 - PURE HYPERCHOLESTEROLEMIA, UNSPECIFIED (5) Pre-syncope Code(s): R55 - SYNCOPE AND COLLAPSE Visit type - Emergency Visit Emergency Visit: Yes ED Registration Date: 05/14/20 Care time: The patient presented to the Emergency Department on the above date and was hospitalized for further evaluation of their emergent condition. - New Patient This patient is new to me today: Yes Date on this admission: 05/16/20 - Critical Care
--- NOTE | 2020-05-17 13:44 | PN ---
Progress Note, Physician History of Present Illness: stable no complaints wbc has resolved - Current Medication List Current Medications: Active Medications Atorvastatin Calcium (Lipitor -) 10 mg PO HS ALE Last Admin: 05/16/20 21:50 Dose: 10 mg Documented by: Bisacodyl (Dulcolax -) 5 mg PO DAILY PRN PRN Reason: CONSTIPATION Last Admin: 05/17/20 10:09 Dose: 5 mg Documented by: Collagenase (Santyl -) 1 applic TP DAILY [facility]; Protocol Last Admin: 05/17/20 10:09 Dose: 1 applic Documented by: Docusate Sodium (Colace -) 100 mg PO DAILY ALE Last Admin: 05/17/20 10:09 Dose: 100 mg Documented by: Enoxaparin Sodium (Lovenox -) 40 mg SQ DAILY ALE Last Admin: 05/15/20 10:28 Dose: 40 mg Documented by: Ferrous Sulfate (Feosol -) 325 mg PO BID ALE Last Admin: 05/17/20 10:09 Dose: 325 mg Documented by: Piperacillin Sod/Tazobactam (Sod 3.375 gm/ Dextrose) 50 mls @ 100 mls/hr IVPB Q8H-IV ALE; Protocol Last Admin: 05/17/20 10:09 Dose: 100 mls/hr Documented by: Mirtazapine (Remeron -) 15 mg PO HS ALE Last Admin: 05/16/20 21:50 Dose: 15 mg Documented by: Mupirocin (Bactroban 2% Cream -) 1 applic TP DAILY ALE Last Admin: 05/17/20 10:09 Dose: 1 applic Documented by: Non-Formulary Medication (Menthol [Biofreeze]) 1 applic TD DAILY [facility] Senna (Senna -) 1 tab PO DAILY ALE Last Admin: 05/17/20 10:09 Dose: 1 tab Documented by: - Objective Vital Signs: Vital Signs Temperature 98.7 F 05/17/20 10:50 Pulse Rate 88 05/17/20 10:50 Respiratory Rate 18 05/17/20 10:50 Blood Pressure 132/74 05/17/20 10:50 O2 Sat by Pulse Oximetry (%) 98 05/17/20 09:00 Constitutional: Yes: No Distress, Calm Cardiovascular: Yes: S1, S2 Respiratory: Yes: Regular, CTA Bilaterally Gastrointestinal: Yes: Normal Bowel Sounds, Soft Musculoskeletal: Yes: WNL Extremities: Yes: Other Wound/Incision: Yes: Dressing Dry and Intact Neurological: Yes: Alert, Oriented Psychiatric: Yes: Alert, Oriented Labs: CBC, BMP 05/17/20 07:20 05/17/20 07:20 INR, PTT INR 1.18 (0.83-1.09) H 05/15/20 05:58 Assessment/Plan 69M w/ pmhx of HTN, Irregular Heart Rate? (pt denies being told he has Afib), hx of BCC (s/p removal with various mechanisms over the last 20+ years), and Prostate CA(s/p 40 rounds of RT, complicated by colon perforation, s/p colostomy) presents from Wound Care for chronic wound that was not draining on today at the center. Hospital course complicated by syncope. r/o metastatic cancer afib syncope anemia htn ict abx plan for biopsy today rest as per the team
--- NOTE | 2020-05-17 13:44 | PN ---
Physical Exam: SUBJECTIVE: Patient seen and examined at bedside; no acute events overnight patient states he is feeling well and is anxious to get up and walking; he denies any CP/SOB/NV no events noted on tele OBJECTIVE: Vital Signs Period Temp Pulse Resp BP Sys/Dowling Pulse Ox Last 24 Hr 97.5 F-98.7 F 71-88 18-20 106-132/56-74 92-98 GENERAL: The patient is awake, alert, and fully oriented, in no acute distress. EYES: PEERLA: EOMI no scleral icterus NECK: no JVD: no lymphadenopathy LUNGS: CTA B/L no rales, rhonchi or wheezing HEART: Regular rate and rhythm, S1, S2 without murmur, rub or gallop. ABDOMEN: soft; NT ND +BS EXTREMITIES: 2+ pulses, warm, well-perfused, no edema. PSYCH: Normal mood, normal affect. SKIN: Warm, dry, normal turgor, no rashes or lesions noted Laboratory Results - last 24 hr 05/17/20 05/17/20 07:20 07:20 WBC 10.9 H RBC 3.31 L Hgb 8.5 L Hct 27.0 L MCV 81.4 MCH 25.7 MCHC 31.6 L RDW 22.5 H Plt Count 696 H MPV 6.9 L Absolute Neuts (auto) 8.8 H Neutrophils % 80.3 Lymphocytes % 12.5 Monocytes % 5.4 Eosinophils % 1.2 Basophils % 0.6 Nucleated RBC % 0 Sodium 140 Potassium 4.2 Chloride 106 Carbon Dioxide 29 Anion Gap 5 L BUN 15.1 Creatinine 0.7 Est GFR (CKD-EPI)AfAm 112.38 Est GFR (CKD-EPI)NonAf 96.97 Random Glucose 84 Calcium 9.4 Phosphorus 3.3 Magnesium 2.5 H Total Bilirubin 0.4 AST 20 ALT 31 Alkaline Phosphatase 93 Total Protein 6.8 Albumin 2.1 L Active Medications Generic Name Dose Route Start Last Admin Trade Name Freq PRN Reason Stop Dose Admin Atorvastatin Calcium 10 mg 05/14/20 22:00 05/16/20 21:50 Lipitor - PO 10 mg HS ALE Administration Bisacodyl 5 mg 05/17/20 09:02 05/17/20 10:09 Dulcolax - PO 5 mg DAILY PRN Administration CONSTIPATION Collagenase 1 applic 05/15/20 10:00 05/17/20 10:09 Santyl - TP 1 applic DAILY ALE Administration Protocol Docusate Sodium 100 mg 05/15/20 10:00 05/17/20 10:09 Colace - PO 100 mg DAILY ALE Administration Enoxaparin Sodium 40 mg 05/15/20 10:00 05/15/20 10:28 Lovenox - SQ 40 mg DAILY ALE Administration Ferrous Sulfate 325 mg 05/14/20 22:00 05/17/20 10:09 Feosol - PO 325 mg BID ALE Administration Piperacillin Sod/Tazobactam 50 mls @ 100 mls/hr 05/14/20 18:00 05/17/20 10:09 Sod 3.375 gm/ Dextrose IVPB 100 mls/hr Q8H-IV ALE Administration Protocol Mirtazapine 15 mg 05/14/20 22:00 05/16/20 21:50 Remeron - PO 15 mg HS ALE Administration Mupirocin 1 applic 05/15/20 10:00 05/17/20 10:09 Bactroban 2% Cream - TP 1 applic DAILY ALE Administration Non-Formulary Medication 1 applic 05/15/20 10:00 Menthol [Biofreeze] TD DAILY ALE Senna 1 tab 05/15/20 10:00 05/17/20 10:09 Senna - PO 1 tab DAILY ALE Administration ASSESSMENT/PLAN: 9M w/ pmhx of HTN, Irregular Heart Rate? (pt denies being told he has Afib), hx of BCC (s/p removal with various mechanisms over the last 20+ years), and Prostate CA(s/p 40 rounds of RT, complicated by colon perforation, s/p colostomy ) presents from Wound Care for chronic wound that was not draining on today at the center. Hospital course complicated by syncope. #Metastatic Cancer -Multiple bone mets to the pelvis and soft tissue mass likely suggestive of metastatic prostate cancer rather than BCC -Record release sent out to [place] for previous cancer work up -ID and Wound care Consults appreciated -going today for IR guided biopsy -Heme/Onc and IR consults appreciated -CT LLE w/ contrast reviewed, Bony destruction with adjacent soft tissue mass c/w metastatic disease. Central Fluid suggestive of necrosis -vs. abcess. -Cont Zosyn 3.375 gm q8H IV (started 05/14/20); as per dr bobde can likely d/c abx if no other procedure is planned -PET Scan outpatient, Pt. needs PCP -Will need derm follow up for BCC -if biopsy results come back positive for bone mass/tumor; will need ortho input ; however as per heme-onc patient does not need to stya in hospital until results come back #? Afib -Cardio consulted -Denies being on AC #Malnutrition -Dietary consult #Syncope; likely 2/2 dehydration vs. vasovagal. -EKG wnl -Cardio consulted -c/w Metoprolol -d/c Amiodarone -Pt. not on AC and is unsure why, has hx of major bleeding within the past 3 months. - #Normocytic Anemia; likely 2/2 to bone malignancy -Iron studies wnl -Pt. has 2 active malignancies with known metastases, will continue DVT Ppx #HTN/HLD; Cont home med: Atorvastatin 10 HS. Hc/w metoprololm #FEN -PO hydration -monitor electrolytes, replete as needed -Normal Diet #Prophylaxis DVT: Lovenox 40 dispo: pending PT eval Problem List - Problems (1) Abscess Code(s): L02.91 - CUTANEOUS ABSCESS, UNSPECIFIED (2) Cancer Code(s): C80.1 - MALIGNANT (PRIMARY) NEOPLASM, UNSPECIFIED (3) HTN (hypertension) Code(s): I10 - ESSENTIAL (PRIMARY) HYPERTENSION (4) Hypercholesterolemia Code(s): E78.00 - PURE HYPERCHOLESTEROLEMIA, UNSPECIFIED (5) Pre-syncope Code(s): R55 - SYNCOPE AND COLLAPSE Visit type - Emergency Visit Emergency Visit: Yes ED Registration Date: 05/14/20 Care time: The patient presented to the Emergency Department on the above date and was hospitalized for further evaluation of their emergent condition. - New Patient This patient is new to me today: No - Critical Care Critical Care patient: No - Medication Review Med list reviewed for High Risk Meds patients 65 and older: Yes ATTENDING PHYSICIAN STATEMENT I saw and evaluated the patient. I reviewed the resident's note and discussed the case with the resident. I agree with the resident's findings and plan as documented. SUBJECTIVE: OBJECTIVE: ASSESSMENT AND PLAN:
--- NOTE | 2020-05-17 13:45 | PN ---
Progress Note, Physician History of Present Illness: stable awaiting biopsy results - Current Medication List Current Medications: Active Medications Atorvastatin Calcium (Lipitor -) 10 mg PO HS ALE Last Admin: 05/16/20 21:50 Dose: 10 mg Documented by: Bisacodyl (Dulcolax -) 5 mg PO DAILY PRN PRN Reason: CONSTIPATION Last Admin: 05/17/20 10:09 Dose: 5 mg Documented by: Collagenase (Santyl -) 1 applic TP DAILY [facility]; Protocol Last Admin: 05/17/20 10:09 Dose: 1 applic Documented by: Docusate Sodium (Colace -) 100 mg PO DAILY ALE Last Admin: 05/17/20 10:09 Dose: 100 mg Documented by: Enoxaparin Sodium (Lovenox -) 40 mg SQ DAILY ALE Last Admin: 05/15/20 10:28 Dose: 40 mg Documented by: Ferrous Sulfate (Feosol -) 325 mg PO BID ALE Last Admin: 05/17/20 10:09 Dose: 325 mg Documented by: Piperacillin Sod/Tazobactam (Sod 3.375 gm/ Dextrose) 50 mls @ 100 mls/hr IVPB Q8H-IV ALE; Protocol Last Admin: 05/17/20 10:09 Dose: 100 mls/hr Documented by: Mirtazapine (Remeron -) 15 mg PO HS ALE Last Admin: 05/16/20 21:50 Dose: 15 mg Documented by: Mupirocin (Bactroban 2% Cream -) 1 applic TP DAILY ALE Last Admin: 05/17/20 10:09 Dose: 1 applic Documented by: Non-Formulary Medication (Menthol [Biofreeze]) 1 applic TD DAILY [facility] Senna (Senna -) 1 tab PO DAILY ALE Last Admin: 05/17/20 10:09 Dose: 1 tab Documented by: - Objective Vital Signs: Vital Signs Temperature 98.7 F 05/17/20 10:50 Pulse Rate 88 05/17/20 10:50 Respiratory Rate 18 05/17/20 10:50 Blood Pressure 132/74 05/17/20 10:50 O2 Sat by Pulse Oximetry (%) 98 05/17/20 09:00 Constitutional: Yes: No Distress, Calm Cardiovascular: Yes: S1, S2 Respiratory: Yes: Regular, CTA Bilaterally Gastrointestinal: Yes: Normal Bowel Sounds, Soft Musculoskeletal: Yes: WNL Extremities: Yes: Other Neurological: Yes: Alert, Oriented Psychiatric: Yes: Alert, Oriented Labs: CBC, BMP 05/17/20 07:20 05/17/20 07:20 INR, PTT INR 1.18 (0.83-1.09) H 05/15/20 05:58 Assessment/Plan 69M w/ pmhx of HTN, Irregular Heart Rate? (pt denies being told he has Afib), hx of BCC (s/p removal with various mechanisms over the last 20+ years), and Prostate CA(s/p 40 rounds of RT, complicated by colon perforation, s/p colostomy) presents from Wound Care for chronic wound that was not draining on today at the center. Hospital course complicated by syncope. r/o metastatic cancer afib syncope anemia htn plan can stop abx and monitor await for biopsy results rest as per the team
--- NOTE | 2020-05-17 14:57 | DS ---
Physical Exam: SUBJECTIVE: tient seen and examined at bedside; no acute events overnight patient states he is feeling well and is anxious to get up and walking; he denies any CP/SOB/NV no events noted on tele OBJECTIVE: Vital Signs Period Temp Pulse Resp BP Sys/Dowling Pulse Ox Last 24 Hr 97.5 F-98.7 F 71-88 18-20 106-132/57-74 92-98 PHYSICAL EXAM GENERAL: The patient is awake, alert, and fully oriented, in no acute distress. EYES: PEERLA: EOMI no scleral icterus NECK: no JVD: no lymphadenopathy LUNGS: CTA B/L no rales, rhonchi or wheezing HEART: Regular rate and rhythm, S1, S2 without murmur, rub or gallop. ABDOMEN: soft; NT ND +BS EXTREMITIES: 2+ pulses, warm, well-perfused, no edema. PSYCH: Normal mood, normal affect. SKIN: Warm, dry, normal turgor, no rashes or lesions noted LABS Laboratory Results - last 24 hr 05/17/20 05/17/20 07:20 07:20 WBC 10.9 H RBC 3.31 L Hgb 8.5 L Hct 27.0 L MCV 81.4 MCH 25.7 MCHC 31.6 L RDW 22.5 H Plt Count 696 H MPV 6.9 L Absolute Neuts (auto) 8.8 H Neutrophils % 80.3 Lymphocytes % 12.5 Monocytes % 5.4 Eosinophils % 1.2 Basophils % 0.6 Nucleated RBC % 0 Sodium 140 Potassium 4.2 Chloride 106 Carbon Dioxide 29 Anion Gap 5 L BUN 15.1 Creatinine 0.7 Est GFR (CKD-EPI)AfAm 112.38 Est GFR (CKD-EPI)NonAf 96.97 Random Glucose 84 Calcium 9.4 Phosphorus 3.3 Magnesium 2.5 H Total Bilirubin 0.4 AST 20 ALT 31 Alkaline Phosphatase 93 Total Protein 6.8 Albumin 2.1 L imaging: CT LLE w/ contrast reviewed, Bony destruction with adjacent soft tissue mass c/w metastatic disease. Central Fluid suggestive of necrosis -vs. abcess. HOSPITAL COURSE: Date of Admission:05/14/20 Pt. is a 69 y.o. M w/ PMHx. of HTN, Irregular Heart Rate?( Pt. denies being told he has Afib), Hx. of BCC (s/p removal with various mechanisms over the last 20+ years), and Prostate CA(s/p 40 rounds of RT, complicated by colon perforation, s/p colostomy) presents from Wound Care for chronic wound that was not draining on today at the center. Hospital course complicated by syncope. while he was in the hospital, patient was started on IV abx (zosyn for 3 days, which was stopped by ID as his suspicion is more likely a mass and less likely infection), patient underwent an IR guided biopsy of the wound (results pending as per heme onc patient didn't need to stay in hospital for results) patients syncope workup was negative- he was seen by cardio and remained on the tele floor for three days with no tele events; patients amiodarone was d/c and he was started back on his metoprolol-he was discahrged back to his SNF with referrals to cardiology, primary care as he will need a PET scan, dermatology for his BCC, heme-onc if he so wishes to not return to his original and to wound care clinc Date of Discharge: 05/17/20 Discharge Summary Problems reviewed: Yes Reason For Visit: ABCESS PRE SYNCOPE MALIGNANT NEOPLASM Current Active Problems Abscess (Acute) Cancer (Acute) HTN (hypertension) (Acute) Hypercholesterolemia (Acute) Pre-syncope (Acute) Prostate CA (Acute) Condition: Stable - Instructions Diet, Activity, Other Instructions: You came to the emergency room when your leg wound was noted to be draining and you also fainted. While you were here you were evaluated by a director of operations home health and were monitored on the telemetry floor. IN addition, you were evaluated by a box liner-oncologist and underwent a biopsy of your wound, of which the results will take a few days to get back. Your symptoms improved and you were stable to be discharged back to your nursing facility Please resume all of your home medications Except: please do not continue taking the medication Amiodarone Referrals: We are providing you with a primary care physician , Dr Govea for you to follow up with- you will need to have a PET scan Please follow up with the director of operations home health, Dr Dawn within one week Please follow up with Dr Pisano in the wound care clinic Please follow up with the box liner-oncologist, Dr. Peralta within one week to obtain your biopsy results or you can continue seeing your regular oncologist We are also providing you with a water supervisor, Dr Thakur to follow up with If you begin to experience any dizziness, chest pains, shortness of breath, nausea/vomiting fevers, please return to the emergency room immediately Referrals: Chan Govea MD [Staff Physician] - 1 Week Jerri Pitts MD [Staff Physician] - Kathryn Welch MD [Staff Physician] - 1 Week Warner Pisano DO [Staff Physician] - 1 Week Sav Dawn MD [Staff Physician] - 1 Week Disposition: S[facility]IOR CARE FACILITY - Home Medications Comprehensive Discharge Medication List: Ambulatory Orders Amlodipine Besylate [Norvasc -] 2.5 mg PO DAILY 05/14/20 Atorvastatin Ca [Lipitor] 1 tab PO DAILY 05/14/20 Calcium Carbonate/Vitamin D3 [Calcium 500-Vit D3 400 Tablet] 1 tab PO DAILY 05/14/20 Collagenase Clostridium Hist. [Santyl] 1 applic TD DAILY 05/14/20 Docusate Sodium [Colace] 1 cap PO DAILY 05/14/20 Ferrous Sulfate 1 tab PO BID 05/14/20 Hydrocodone/Acetaminophen [Hydrocodone-Acetamin 5-300 mg] 1 tab PO BID PRN 05/14/20 Menthol [Biofreeze] 1 applic TD DAILY 05/14/20 Metoprolol Succinate 1 tab PO DAILY 05/14/20 Mirtazapine [Remeron -] 1 tab PO DAILY 05/14/20 Multivitamin 1 tab PO DAILY 05/14/20 Mupirocin Cream [Bactroban 2% Cream -] 1 applic TD DAILY 05/14/20 Polyethylene Glycol 17 gm PO DAILY 05/14/20 Probiotic & Acidophilus Cap 1 tab PO DAILY 05/14/20 Sennosides [Senna] 1 cap PO DAILY 05/14/20 Tylenol .Extra-Strength - 500 mg PO BID PRN 05/14/20 Problem List - Problems (1) Abscess Code(s): L02.91 - CUTANEOUS ABSCESS, UNSPECIFIED (2) Cancer Code(s): C80.1 - MALIGNANT (PRIMARY) NEOPLASM, UNSPECIFIED (3) HTN (hypertension) Code(s): I10 - ESSENTIAL (PRIMARY) HYPERTENSION (4) Hypercholesterolemia Code(s): E78.00 - PURE HYPERCHOLESTEROLEMIA, UNSPECIFIED (5) Pre-syncope Code(s): R55 - SYNCOPE AND COLLAPSE - Discharge Referral Referred to [facility] No ATTENDING PHYSICIAN STATEMENT I saw and evaluated the patient. I reviewed the resident's note and discussed the case with the resident. I agree with the resident's findings and plan as documented. SUBJECTIVE: OBJECTIVE: ASSESSMENT AND PLAN:
[2020-05-17] MEDS ORDERED: ACETAMINOPHEN 325 MG TABLET (FP) PO PRN (22:08)
[2020-05-17] MEDS: ATORVASTATIN CA 10 MG TABLET (FP) PO SCH (22:26)
[2020-05-17] MEDS: MIRTAZAPINE 15 MG TABLET (FP) PO SCH (22:26)
[2020-05-18 07:27] LABS: BASO % 0.7 % (0-2.0); EOS % 1.8 % (0-4.5); HEMATOCRIT 26.4 % (35.4-49); HEMOGLOBIN 8.2 GM/dL (11.7-16.9); LYMPH % 18.3 % (8-40); MCH 25.5 pg (25.7-33.7); MCHC 31.1 g/dl (32.0-35.9); MEAN PLT VOLUME 6.9 fl (7.5-11.1); MONO % 5.3 % (3.8-10.2); NEUT % 73.9 % (42.8-82.8); PLATELET COUNT 633 K/MM3 (134-434); RBC 3.22 M/mm3 (4.00-5.60); WHITE BLOOD COUNT 8.3 K/mm3 (4.0-10.0)
[2020-05-18 08:01] LABS: POTASSIUM 4.3 mmol/L (3.5-5.1)
[2020-05-18 08:14] LABS: ALBUMIN 2.1 g/dl (3.4-5.0); BILIRUBIN,TOTAL 0.5 mg/dL (0.2-1); BLOOD UREA NITROGEN 15.6 mg/dL (7-18); CALCIUM 8.6 mg/dL (8.5-10.1); CREATININE 0.5 mg/dL (0.55-1.3); MAGNESIUM 2.4 mg/dL (1.8-2.4); PHOSPHOROUS 3.4 mg/dL (2.5-4.9); TOT PROT 6.9 g/dl (6.4-8.2)
[2020-05-18] MEDS: ENOXAPARIN NA (PORCINE) 40 MG/0.4 ML DISP.SYRIN SQ SCH (10:14)
[2020-05-18] MEDS: DOCUSATE SODIUM 100 MG CAPSULE (FP) PO SCH (10:14)
[2020-05-18] MEDS: FERROUS SO4 325 MG TABLET (FP) PO SCH (10:14)
[2020-05-18] MEDS: SENNOSIDES 8.6MG TABLET (FP) PO SCH (10:14)
[2020-05-18 10:18] LABS: ANISOCYTOSIS 1+; MACROCYTOSIS 0; OVALOCYTE 1+; PLATELET ESTIMATE INCREASED
--- NOTE | 2020-05-18 11:57 | PN ---
Progress Note, Physician - Current Medication List Current Medications: Active Medications Acetaminophen (Tylenol -) 650 mg PO ONCE PRN PRN Reason: Fever Or Pain Last Admin: 05/17/20 22:38 Dose: 650 mg Documented by: Atorvastatin Calcium (Lipitor -) 10 mg PO HS [facility] Last Admin: 05/17/20 22:26 Dose: 10 mg Documented by: Bisacodyl (Dulcolax -) 5 mg PO DAILY PRN PRN Reason: CONSTIPATION Last Admin: 05/17/20 10:09 Dose: 5 mg Documented by: Collagenase (Santyl -) 1 applic TP DAILY [facility]; Protocol Last Admin: 05/17/20 10:09 Dose: 1 applic Documented by: Docusate Sodium (Colace -) 100 mg PO DAILY [facility] Last Admin: 05/18/20 10:14 Dose: 100 mg Documented by: Enoxaparin Sodium (Lovenox -) 40 mg SQ DAILY [facility] Last Admin: 05/18/20 10:14 Dose: 40 mg Documented by: Ferrous Sulfate (Feosol -) 325 mg PO BID [facility] Last Admin: 05/18/20 10:14 Dose: 325 mg Documented by: Mirtazapine (Remeron -) 15 mg PO HS [facility] Last Admin: 05/17/20 22:26 Dose: 15 mg Documented by: Mupirocin (Bactroban 2% Cream -) 1 applic TP DAILY [facility] Last Admin: 05/17/20 10:09 Dose: 1 applic Documented by: Senna (Senna -) 1 tab PO DAILY [facility] Last Admin: 05/18/20 10:14 Dose: 1 tab Documented by: - Objective Vital Signs: Vital Signs Temperature 98 F 05/18/20 09:00 Pulse Rate 77 05/18/20 09:00 Respiratory Rate 18 05/18/20 09:00 Blood Pressure 104/52 L 05/18/20 09:00 O2 Sat by Pulse Oximetry (%) 99 05/18/20 09:00 Labs: CBC, BMP 05/18/20 05:42 05/18/20 05:42 INR, PTT INR 1.18 (0.83-1.09) H 05/15/20 05:58
[2020-05-18] MEDS: COLLAGENASE CLOSTRIDIUM HIST. 30 GRAMS TUBE TP SCH (12:19)
[2020-05-18 14:55] VITALS: BP 118/61; PULSE 88; TEMP 98.2
--- NOTE | 2020-05-18 15:05 | PN ---
Progress Note (short form) - Note Progress Note: Pt appealed discharge on previous day. Pt discharged this AM to SNF. Exam unchanged, no events and D/c summary per previous.
--- NOTE | 2020-05-21 16:07 | PATH ---
Cytology Non-Gynecological Report Patient Name: LYNN GILES [facility]. Rec. #: [id number] /Age/Gender: 1950 (Age: 69) / M Account: [id number] Location: 4 TELEMETRY U Taken: 05/16/2020 Received: 05/16/2020 Reported: 05/21/2020 Physicians: Maryse Urias M.D. Specimen(s) Received LEFT GROIN MASS Clinical History Left groin mass Final Diagnosis LEFT GROIN MASS, FINE NEEDLE ASPIRATION FOR CYTOLOGY: SATISFACTORY FOR EVALUATION. NEGATIVE FOR MALIGNANT CELLS. Blood ADMIXED WITH NUMEROUS ACUTE NEUTROPHILS, SUGGESTIVE OF ABSCESS. Comment: Clinical correlation is recommended. Electronically Signed Cody Hall M.D. Gross Description Approximately 55 cc of bloody fluid received fresh. One cytospin and one cell Plock prepared.
== END 2020-05-18 15:00 | DRG 987 ==
LOC: JER 10:07 → JERBED 15:13 → J4W 05-15 11:52
PROVIDERS: ATTEND Internal Medicine
PROC: 0Y963ZX Drainage of Left Inguinal Region, Percutaneous Approach, Diagnostic (ICD-10-PCS; principal; 2020-05-16)
DX: C79.51 Secondary malignant neoplasm of bone (principal); L89.153 Pressure ulcer of sacral region, stage 3; L02.416 Cutaneous abscess of left lower limb; R64 Cachexia; E46 Unspecified protein-calorie malnutrition; Z68.1 Body mass index [BMI] 19.9 or less, adult; R55 Syncope and collapse; E03.9 Hypothyroidism, unspecified; I10 Essential (primary) hypertension; C61 Malignant neoplasm of prostate; I48.91 Unspecified atrial fibrillation; D50.9 Iron deficiency anemia, unspecified; Z93.3 Colostomy status; F32.9 Major depressive disorder, single episode, unspecified; E78.00 Pure hypercholesterolemia, unspecified; D47.3 Essential (hemorrhagic) thrombocythemia; E86.0 Dehydration; E78.5 Hyperlipidemia, unspecified; D63.8 Anemia in other chronic diseases classified elsewhere
CPT/HCPCS: 10030; 10060; 36415; 70450-TC; 71045-TC-FY; 73701-TC-RT; 80053; 81003; 82550; 82728; 82962; 83036; 83540; 83550; 83605; 83735; 84100; 84153; 84443; 84484; 85025; 85045; 85610; 87040; 87070; 87086; 87102; 87116; 87205; 87206; 87210; 88108; 88305-TC; 93005; 93010; 93306-TC; 97116-GP; 97161-GP; 99285-25; Q9967; U0003